=== PATIENT | female | born 1980 | race Caucasian/White ===

== ENCOUNTER 2017-07-15 17:09 | Observation (INO) ==
--- NOTE | 2017-07-15 17:30 | Emergency Department Note ---
Disposition Clinical Impression: Hyperemesis gravidarum, Hypokalemia Crohn's colitis Qualifiers: Digestive disease complication type: unspecified complication Qualified Code(s) : K50.119 - Crohn's disease of large intestine with unspecified complications Disposition: Admitted As Inpatient Condition: Fair Time of Disposition: 20:50 Nausea/Vomiting/Diarrhea HPI - General Chief complaint: ED Abdominal Pain Stated complaint: abdominal pain, 16 weeks preg Time Seen by Provider: 07/15/17 17:11 Source: patient Mode of arrival: ambulatory Limitations: no limitations Nursing Notes Reviewed: Yes Vital Signs Reviewed: Yes - History of Present Illness HPI Narrative: Mrs. Whiteside, a 37yo female, presents from [facility] for evaluation of persistent nausea and vomiting. She was seen in this ED 2 days ago for the same , discharged on reglan PO and phenergran rectal. She was unable to fill the prescription for these medications. She presented to [facility] this morning; received 1L IVF and 1 dose reglan. Her symptoms transiently improve with reglan then she is back to nausea and vomiting. She was also hypokalemic to 3.0 at [facility] and she was given 40mEq K at 16:30. They discharged with recommendation to present to [place] as her OB is at this facility. Patient has lower abdominal pain which she describes as cramping and consistent with her inflammatory pain of Crohn's. She also has right upper quadrant pain described as sharp, stabbing with radiation straight to her back. This is unchanged and vomiting and is worse within 1 hour of by mouth intake. Patient does have markedly reduced by mouth intake and is attempting chicken broth and sherbet ice cream. Patient noted her diarrhea began after she completed a ten-day course of Keflex for UTI prescribed by her OB. OB: Dr. Mckeon. PMH: well controlled Crohn's. - Related Data Previous Rx's Medication Instructions Recorded Metoclopramide [Reglan] 10 mg PO TID PRN #7 tablet 07/13/17 Promethazine [Phenergan] 12.5 mg RC Q6HR PRN #2 supp.rect 07/13/17 Allergies Allergy/AdvReac Type Severity Reaction Status Date / Time Penicillins Allergy Hives Verified 07/15/17 17:14 All systems ED: reviewed and negative except as stated. Review of Systems: As Per HPI Past Medical History - Past Medical History Medical history: Reports: other Psychiatric history: Reports: anxiety [facility] history: Reports: other - Social History Smoking Status: Never smoker Smokeless Tobacco Status: No Alcohol use: Reports: none Drug use: Reports: none Physical Exam Vital Signs Reviewed she is tachycardic on intake. General: Patient is alert, oriented, and in no acute distress. Head: atraumatic, normocephalic Eye: normal appearance, PERRL, EOMI, no scleral icterus, no conjunctival injection ENT: mucous membranes tacky, normal external ear exam Neck: normal inspection, trachea midline, full ROM Chest: normal inspection, symmetric chest rise Respiratory: Good respiratory effort. Bilateral breath sounds are clear without wheezing, crackles, or rhonchi. Cardiovascular: Regular rate and rhythm. No clicks, rubs, gallops, or murmors. Normal heart sounds. Abdomen: Bowel sounds present normoactive x-4 quadrants. Abdomen is soft, nondistended. Mild tenderness in lower abdomen most notable in the hypogastrium. Positive Cerna with right upper quadrant tenderness. Musculoskeletal: Spontaneously moving all extremities. Skin: warm, dry, intact. Neuro: Alert and oriented x4. Sensation light touch intact. Psych: Patient's affect is appropriate for situation. - General General appearance: alert, in no apparent distress Course Course Narrative: Labwork at [facility] performed this afternoon: Hematology: WBC 13.0 RBC 4.64 Hemoglobin 12.9 Hematocrit 38.8 Serum chemistry: Sodium 134 Potassium 3.0 Chloride 103 CO2 22 And 9 9.0 Glucose 85 BUN 6 Creatinine 0.5 to Calcium 8.0 Alkaline phosphatase 79 ALT 16 AST 19 Total bilirubin 0.6 Direct bilirubin 0.2 Albumin 2.9 Indirect bilirubin 0.4 Lipase 11 Urinalysis: Color yellow Appearance clear Specific gravity 1.025 PH 5.0 Gross normal Ketones 150 MG/D Bilirubin negative Blood 25/UL Urobilinogen normal Leukocyte esterase 25/UL Nitrites negative Protein 15 MG/DL WBC 10-25 RBC 0-5 Squamous epithelial moderate Bacteria many Patient was seen and evaluated in this emergency department for the same symptoms 3 days ago. Lab work at that time was unremarkable; specifically normal hepatic and biliary tree enzymes and no laboratory evidence UTI. Patient was hypokalemic at [facility] today and receive 40 mEq of by mouth potassium. She was able to keep this down approximately 2 hours before vomiting. Will repeat serum potassium. Serum potassium 3.2 at this facility. I discussed the above with the nurse engineering technology instructor, Madelyn, who agrees to accept the patient for hyperemesis gravidarum, hypokalemia, Crohn's. She is agreeable to me beginning prednisone at the minimum dose appropriate for Crohn's. I discussed prednisone with my attending. 40mg PO is the appropriate minimum prednisone dose, however PO. Will substitute decadron 10mg IV. Vital Signs Temperature 98.3 F 07/15/17 17:11 Pulse Rate 116 07/15/17 17:11 Respiratory Rate 16 07/15/17 17:11 Blood Pressure 129/83 07/15/17 17:11 O2 Sat by Pulse Oximetry 99 07/15/17 17:11 Temperature 98.3 F 07/15/17 17:11 Pulse Rate 116 07/15/17 17:11 Respiratory Rate 16 07/15/17 17:11 Blood Pressure 129/83 07/15/17 17:11 O2 Sat by Pulse Oximetry 99 07/15/17 17:11 Oxygen Delivery Oxygen Delivery Room Air Nausea/Vomiting/Diarrhea - Medical Records Medical records reviewed: Yes I reviewed the patient's medical records. - Lab Data Lab results reviewed: Yes I reviewed the patient's lab results. Result diagrams: 07/15/17 18:01 Lab Results 07/15/17 Range/Units 18:01 Potassium 3.2 L (3.5-5.1) mEq/L Attestation Statement - Attestation Attestation: I examined this patient and my medical decision-making was reviewed with the Resident Physician, Dr. Valle. I agree with the documented findings, disposition and treatment plan as described except to the extent set forth below. Patient is a 37-year-old white female is practicing 16 weeks A0 who I personally saw initially 48 hours ago for nausea vomiting and one loose watery bowel movement in the emergency department. We treated the patient with IV fluids and Reglan which improved her symptoms considerably and she was discharged home with a prescription for Reglan as well as Phenergan suppositories. Patient has been using Zofran at home up to this point for nausea and patient feels this is working well. Patient sees Dr. Mckeon for OB care and it was recommended that she follow up with Dr. Mckeon. Patient apparently was seen at [facility] prior to our arrival here was treated in the emergency room with a liter of fluids and Reglan with continued nausea and vomiting. She was also found to be hypokalemic and was given by mouth potassium replacement. Patient was recommended to come here since her BRICK SORTER has privileges here at this facility for ongoing evaluation. Patient denies any vaginal bleeding or spotting, and no significant abdominal pain no fevers or chills no other associated symptoms. I agree with patient's physical exam findings as documented. Vital signs are stable, the exception of mild tachycardia on arrival. Patient had IV saline well-established was started on IV fluids and given Reglan and Zofran for nausea here in the emergency department. We did not repeat labs as her entire lab panel was sent for [facility]. On serial examinations patient continues to have intractable nausea and vomiting as well as a few loose watery bowel movements here in the emergency department. Patient is not improved with ongoing therapy in the ED. Repeat potassium level was 3.2. Case was discussed with the engineering technology instructor who is telephone triage nurse covering for Dr. Mckeon who accepted patient for admission for ongoing IV fluids and medication for intractable vomiting. We will also start steroids, this was discussed with Dr. Mckeon and they agree for possible mild Crohn's flare. At this time patient is hemodynamically stable and will be admitted for further management.
[2017-07-15] MEDS ORDERED: 0.9 % Sodium Chloride 1,000 ML IVC ONE (17:50)
[2017-07-15] MEDS ORDERED: Metoclopramide 10 MG/2 ML VIAL IVP ONE (19:13)
[2017-07-15] MEDS ORDERED: Ondansetron 4 MG/2 ML VIAL IVP ONE (20:05)
[2017-07-15] MEDS ORDERED: Dexamethasone 10 MG/ML VIAL IVP ONE (21:11)
[2017-07-15] MEDS ORDERED: Ondansetron 4 MG/2 ML VIAL IVP PRN (21:25)
[2017-07-15] MEDS ORDERED: VITAMIN K IVPB SCH (22:00)
[2017-07-15] MEDS ORDERED: FOLIC ACID IVPB SCH (22:00)
[2017-07-15] MEDS ORDERED: MVI IVPB SCH (22:00)
[2017-07-15] MEDS ORDERED: THIAMINE IVPB SCH (22:00)
[2017-07-15] MEDS ORDERED: [UNRECOGNIZED DRUG - OTHER] IVPB SCH (22:00)
[2017-07-15] MEDS: Ringers Solution, Lactated 1,000 ML IVC SCH (22:50)
--- NOTE | 2017-07-15 23:59 | Internal Medicine Consult Note ---
Date of Encounter: 07/15/17 Time of Encounter: 23:00 - Assessment and Plan (1) Crohn's colitis Current Visit: Yes Status: Acute Assessment and plan: Pt symptoms does look like Crohn's flare up Will cont home med Asacol 1600mg TID Will start her on Solumedrol 40mg IV BID.. Checked with OB IV hdyration NPO for now IV Zofran PRN Continue supportive and symptomatic care She does need to be evaluated by GI too... Since she does not have a GI to f/u as an out pt Pt did mention she did well in the past with Humira...however her insurance is not covering that for now.. so she is off Humira for a while Will consult GI in AM depending on how she responds to the current treatment Qualifiers: Digestive disease complication type: without complication Qualified Code(s) : K50.10 - Crohn's disease of large intestine without complications (2) Diarrhea Current Visit: Yes Status: Acute Assessment and plan: due to Crohn's will check for C. Diff too..since she was given Abx recently Qualifiers: Qualified Code(s): R19.7 - Diarrhea, unspecified (3) Hyperemesis gravidarum Current Visit: Yes Status: Acute Assessment and plan: on Zofran (4) UTI (urinary tract infection) Current Visit: Yes Status: Acute Assessment and plan: Asymptomatic UTI Her UA - looks abnormal Pt did mention she recently finished a full course of abx for UTI will defer the abx choice to OB.. will f/u on urine cx Qualifiers: Qualified Code(s): N39.0 - Urinary tract infection, site not specified (5) Nausea & vomiting Current Visit: No Status: Acute Qualifiers: Vomiting type: unspecified Vomiting Intractability: intractable Qualified Code(s): R11.2 - Nausea with vomiting, unspecified Internal Medicine - CN: HPI - Data of Consult Patient: new to practice Requesting Physician: Madelyn Haley CNM - Consult Narrative History of present illness: Ms. Whiteside is a 37 year old female with known Crohn's disease dx when she was 17 y/o, recurrent UTI, 17 weeks gestation pt who is on Asacol for her crohn's and had her last flare up in Jan 2017 now she presented to our ER from [place] for further evaluation for intractable nausea and vomiting, as well as diarrhea. Pt stated she has been having hyperemeiss with the , however from last 2 days she has worsening abdominal pain and profuse watery diarrhea. Unable to hold anything down. Her abd pain 7/10, located RLQ, and non radiating pain. She denied any sick contacts at home. Pt stated her nausea improved with Zofran. She was given Decadran in the ER for Crohn's flare up Past Med Surg Social Fam HX - Past Medical History Medical history: arthritis, other (Crohn's) Psychiatric history: anxiety - Past Surgical History Surgical History: other (Colonoscopy 2yrs ago) - Social History Smoking Status: Never smoker Smokeless Tobacco Status: No Alcohol use: none Drug use: none - Additional Family History Additional family history: Reviewed.. Denied any Crohn's disease in the family Review of systems: Reviewed all the systems, everything is benign except the systems and symptoms I mentioned in HPI Internal Medicine - CN: Meds Metoclopramide [Reglan] 10 mg PO TID PRN #7 tablet 07/13/17 [Rx] Promethazine [Phenergan] 12.5 mg RC Q6HR PRN #2 supp.rect 07/13/17 [Rx] 3 Allergy/AdvReac Type Severity Reaction Status Date / Time Penicillins Allergy Hives Verified 07/15/17 17:14 Internal Medicine - CN: Exam - Constitutional Vitals: Temp Pulse Resp BP Pulse Ox 98.3 F 105 14 115/74 100 07/15/17 21:40 07/15/17 21:40 07/15/17 21:40 07/15/17 21:40 07/15/17 21:40 General appearance IM: Present: cooperative, mild distress (with pain), A&O X 3 , answers questions appropriately - Head Head exam: Present: atraumatic, normal inspection - Neck Neck exam general surgery: Present: supple - Respiratory Respiratory exam: Present: CTAB. Absent: decreased breath sounds, rales, respiratory distress, rhonchi, wheezes - Cardiovascular Cardiovascular exam IM: Present: RRR, +S1, +S2. Absent: systolic murmur, tachycardia - GI/Abdominal GI/Abdominal exam IM: Present: hyperactive bowel sounds, normal bowel sounds, soft, tenderness (lower abdomen). Absent: distended, guarding, rebound, rigid - Extremities Exam Extremities exam IM: Absent: calf tenderness, pedal edema, tenderness - Back Exam Back exam: Absent: CVA tenderness (L), CVA tenderness (R) - Neurological Exam Neurological exam: Present: alert, oriented X3 - Psychiatric Psychiatric exam: Present: normal affect, normal mood - Skin Skin exam IM: Absent: rash Internal Medicine - CN: Reslt - Labs CBC & Chem 7: 07/15/17 18:01 Consult Discharge Plan - Plan Referrals: Steve Wasserman MD [Primary Care Provider] -
[2017-07-16 00:58] LABS: Amphetamine Screen,Urine Negative ng/mL (Cutoff=1000); Barbiturate Screen,Urine Negative ng/mL (Cutoff=200); Benzodiazepines Screen,Urine Negative ng/mL (Cutoff=200); Cannabinoid Screen,Urine Negative ng/mL (Cutoff = 50); Cocaine Screen,Urine Negative ng/mL (Cutoff= 300); Opiate Screen,Urine Negative ng/mL (Cutoff=300); Phencyclidine Screen,Urine Negative ng/mL (Cutoff=25)
[2017-07-16] MEDS: Metoclopramide 10 MG/2 ML VIAL IVP SCH ×2 (02:47→09:09)
[2017-07-16 04:34] LABS: Basophils # 0.1 K/mcL (0.0-0.2); Basophils % 0.6 %; Eosinophils # 0.1 K/mcL (0.0-0.6); Eosinophils % 0.5 %; Hematocrit 34.3 % (35.3-44.9); Hemoglobin 11.7 g/dL (11.5-15.4); Immature Granulocytes % 2.4 % (0-4); Lymphocytes # 1.4 K/mcL (0.6-4.6); Mean Corpuscular HGB Conc 34.1 g/dL (31.6-35.5); Mean Corpuscular Hemoglobin 28.7 pg (28.0-33.3); Mean Corpuscular Volume 84.1 fL (83.0-100.0); Mean Platelet Volume 8.5 fL (9.4-12.4); Monocytes # 0.3 K/mcL (0.0-1.3); Monocytes % 2.2 %; Neutrophils # 9.4 K/mcL (1.6-8.9); Platelet Count 395 K/mcL (140-400); Red Blood Count 4.08 M/mcL (3.82-4.97); Red Cell Distribution Width 13.1 % (11.5-14.5); Segmented Neutrophils % 82.3 %
[2017-07-16 04:50] LABS: Alanine Aminotransferase 13 Units/L (7-52); Albumin 2.8 g/dL (3.5-5.7); Albumin/Globulin Ratio 0.9 (1.1-2.2); Alkaline Phosphatase 78 Units/L (34-104); Aspartate Amino Transferase 13 Units/L (13-39); BUN/Creatinine Ratio 9 (6-26); Bilirubin,Total 0.5 mg/dL (0.3-1.0); Blood Urea Nitrogen 3 mg/dL (6-20); Calcium 8.2 mg/dL (8.6-10.3); Carbon Dioxide 17 mEq/L (23-29); Chloride 108 mEq/L (98-107); Globulin 3.2 g/dL (2.4-3.5); Glucose 89 mg/dL (70-105); Osmolality,Calculated 276 (280-300); Potassium 3.6 mEq/L (3.5-5.1); Sodium 135 mEq/L (136-145); eGFR For African Americans > 60 (> 60); eGFR For Non-African Americans > 60 (> 60)
[2017-07-16] MEDS ORDERED: MethylPREDNISolone 40 MG/ML VIAL IVP SCH (06:00)
[2017-07-16 06:33] LABS: Magnesium 1.6 mg/dL (1.6-2.6)
--- NOTE | 2017-07-16 07:25 | OB/GYN History & Physical ---
Date of Encounter: 07/16/17 Time of Encounter: 07:17 Assessment and Plan (1) Hyperemesis gravidarum Current visit: Yes Status: Acute Advance diet as tolerated Change antiemetics to PO Anticipate discharge home this evening or tomorrow morning (2) 18 weeks gestation of Current visit: Yes Status: Acute Follow up in office as scheduled with routine care (3) Crohn's colitis Current visit: Yes Status: Acute Being followed by hospitalist Anticipate discharge home on prednisone taper. Qualifiers: Digestive disease complication type: without complication Qualified Code(s) : K50.10 - Crohn's disease of large intestine without complications History of Present Illness Chief complaint: Nausea and vomting HPI: Ms. Whiteside is a 37 year old at 18 weeks 1 days by second trimester ultrasound presents to [facility] ED with complaints of nausea, vomiting, diarrhea, and RUQ pain. She states positve movement. She denies vaginal bleeding, discharge, epigastric pain, vision changes, and cramping/contractions. SHe has a history of pre-eclampsia with a previous . She has Crohn's disease and believes she may be having a flare. She was given solumedrol in the ED and states that she feels much better since getting the steroids. Past Med Surg Social Fam HX - Past Medical History Medical history: arthritis, other (Crohn's) Psychiatric history: anxiety - Past Surgical History Surgical History: other (Colonoscopy 2yrs ago) - Social History Smoking Status: Never smoker Smokeless Tobacco Status: No Alcohol use: none Drug use: none Obstetrical History - Pregnancies : 2 Para: 1 Term: 1 : 0 Ab's: 0 Livin Medications and Allergies Metoclopramide [Reglan] 10 mg PO TID PRN #7 tablet 07/13/17 [Rx] Promethazine [Phenergan] 12.5 mg RC Q6HR PRN #2 supp.rect 07/13/17 [Rx] 3 Allergy/AdvReac Type Severity Reaction Status Date / Time Penicillins Allergy Hives Verified 07/15/17 17:14 Review of System OB All systems PM: reviewed and no additional remarkable complaints except as stated Exam - Vital Signs Vital signs: Initial Vital Signs Temp Pulse Resp BP Pulse Ox 98.3 F 116 16 129/83 99 07/15/17 17:11 07/15/17 17:11 07/15/17 17:11 07/15/17 17:11 07/15/17 17:11 - Constitutional Constitutional: well developed, well nourished, no acute distress, average body habitus - HEENT HEENT: Normocephaly, Mucus Membranes Moist - Neck Neck exam: full ROM - Lungs Respiratory exam: CTAB - Cardiovascular Cardiovascular exam: RRR, +S1, +S2 - Abdomen Abdomen: Present: bowel sounds normal, gravid, non tender - Extremities Extremities exam: normal capillary refill, normal inspection, radial pulses palpable and symmetrical Deep Tendon Reflex Grade: 2+ Normal - Vulva Vulva: bilateral: normal Results Result Diagrams: 07/16/17 04:20 07/16/17 04:20 Abnormal lab results WBC 11.4 K/mcL (4.3-11.1) H 07/16/17 04:20 Hct 34.3 % (35.3-44.9) L 07/16/17 04:20 MPV 8.5 fL (9.4-12.4) L 07/16/17 04:20 Neutrophils # 9.4 K/mcL (1.6-8.9) H 07/16/17 04:20 Sodium 135 mEq/L (136-145) L 07/16/17 04:20 Chloride 108 mEq/L (98-107) H 07/16/17 04:20 Carbon Dioxide 17 mEq/L (23-29) L 07/16/17 04:20 BUN 3 mg/dL (6-20) L 07/16/17 04:20 Creatinine 0.33 mg/dL (0.60-1.20) L 07/16/17 04:20 Calculated Osmolality 276 (280-300) L 07/16/17 04:20 Calcium 8.2 mg/dL (8.6-10.3) L 07/16/17 04:20 Serum Total Protein 6.0 g/dL (6.4-8.9) L 07/16/17 04:20 Albumin 2.8 g/dL (3.5-5.7) L 07/16/17 04:20 Albumin/Globulin Ratio 0.9 (1.1-2.2) L 07/16/17 04:20 All other labs normal. - VTE Reasons for not Prescribing Prophylaxis: Treatment not Indicated - Low risk for VTE
[2017-07-16] MEDS ORDERED: Ondansetron ODT 4 MG TAB.RAPDIS SL PRN (07:29)
[2017-07-16] MEDS: Ringers Solution, Lactated 1,000 ML IVC SCH (08:03)
--- NOTE | 2017-07-16 11:13 | Internal Med Progress Note ---
Date of Encounter: 07/16/17 Time of Encounter: 09:30 - Assessment and plan (1) Crohn's colitis Current Visit: Yes Status: Acute Assessment and plan: Symptoms have significantly improved. No new episodes of diarrhea. Continue steroids. We will transition to oral steroids. Gastroenterology consultation for recommendations and to arrange outpatient follow-up. Qualifiers: Digestive disease complication type: without complication Qualified Code(s) : K50.10 - Crohn's disease of large intestine without complications (2) Diarrhea Current Visit: Yes Status: Resolved Assessment and plan: Diarrhea likely due to Crohn's flareup. No new episodes of diarrhea. No signs of C. difficile. We will discontinue isolation precautions. Consider stool studies at this time. Qualifiers: Qualified Code(s): R19.7 - Diarrhea, unspecified (3) UTI (urinary tract infection) Current Visit: Yes Status: Ruled-out Qualifiers: Urinary tract infection type: site unspecified Hematuria presence: without hematuria Qualified Code(s): N39.0 - Urinary tract infection, site not specified (4) 18 weeks gestation of Current Visit: Yes Status: Acute Assessment and plan: Obstetric- gynecology following. - Subjective Interval history: Patient is feeling much better today. No longer having any nausea or vomiting. No new episodes of diarrhea since being hospitalized. No significant abdominal pain at this time. - Constitutional Vitals: Temp Pulse Resp BP Pulse Ox 97.7 F 107 15 116/79 96 07/16/17 08:56 07/16/17 08:56 07/16/17 08:56 07/16/17 08:56 07/16/17 08:56 General appearance: Present: cooperative, A&O X 3, no acute distress, answers questions appropriately - Neck Neck exam general surgery: Present: supple, trachea midline. Absent: lymphadenopathy - Respiratory Respiratory exam: Present: CTAB. Absent: accessory muscle use, rales, rhonchi, wheezes - Cardiovascular Cardiovascular exam: Present: RRR, +S1, +S2. Absent: diastolic murmur, gallop, rubs, systolic murmur - GI/Abdominal GI/Abdominal exam: Present: normal bowel sounds, soft, no peritoneal signs. Absent: distended, tenderness - Extremities Exam Extremities exam: Present: warm, radial pulses palpable and symmetrical. Absent : calf tenderness, cyanotic, pedal edema Internal Medicine: Result - Labs CBC & Chem 7: 02/12/18 04:20 07/16/17 04:20 Labs: Short CBC 07/16/17 Range/Units 04:20 WBC 11.4 H (4.3-11.1) K/mcL Hgb 11.7 (11.5-15.4) g/dL Hct 34.3 L (35.3-44.9) % Plt Count 395 (140-400) K/mcL Neutrophils # 9.4 H (1.6-8.9) K/mcL BMP 07/16/17 04:20 Sodium 135 L Potassium 3.6 Chloride 108 H Carbon Dioxide 17 L BUN 3 L Creatinine 0.33 L Glucose 89 Calcium 8.2 L Liver Function 07/16/17 Range/Units 04:20 Total Bilirubin 0.5 (0.3-1.0) mg/dL AST 13 (13-39) Units/L ALT 13 (7-52) Units/L Alkaline Phosphatase 78 (34-104) Units/L Albumin 2.8 L (3.5-5.7) g/dL - VTE Reasons for not Prescribing Prophylaxis: Treatment not Indicated - Low risk for VTE Consult Discharge Plan - Plan Referrals: Steve Wasserman MD [Primary Care Provider] -
[2017-07-16 16:02] VITALS: BP 106/69
--- NOTE | 2017-07-16 16:28 | Event Note ---
Date of Encounter: 07/16/17 Time of Encounter: 16:[address] Pierson from GI. He will evaluate patient today.
--- NOTE | 2017-07-16 17:59 | Gastroenterology Consult Note ---
<Magali Russell - Last Filed: 07/16/17 17:53> Date of Encounter: 07/16/17 Time of Encounter: 12:30 - Assessment and plan (1) Crohn's colitis Status: Acute Assessment and plan: Pt has history of Crohn's since age 17. She has been on humira in the past, is currently on asacol. Will follow as an outpatient. She is improved on steroids currently. Will need colonoscopy after delivery. Qualifiers: Digestive disease complication type: without complication Qualified Code(s) : K50.10 - Crohn's disease of large intestine without complications - Time Spent With Patient Total time spent is greater than 50% in coordination of care (as documented) at patient's floor/unit and/or counseling patient: GI History of Present Illness - Data of Consult Patient: new to practice Consult date: 07/16/17 Requesting Physician: Madelyn Haley CNM - Consult Narrative Reason for consult: Crohn's disease History of present illness: Ms. Whiteside is a 37 year old female with known Crohn's disease dx when she was 17 y/o, recurrent UTI, 17 weeks gestation. She presents with diarrhea, nausea, vomiting and RUQ abdominal pain. She has been doing well on Asacol. She staes her last flare up was in Jan 2017. Pt stated she has been having hyperemeiss with the , however from last 2 days she has worsening abdominal pain and profuse watery diarrhea up to 15-20 times a day. She reports two BMs had streaks of blood. She also has been unable to hold anything down. Her abd pain 7/10, located RLQ, and non radiating pain. She denied any sick contacts at home. Pt stated her nausea improved with Zofran. She was given Decadran in the ER for Crohn's flare up and reports she feels much better at this time. She states she had been on Humira in the past but is currently not covered by her insurance. She was followed by GI at [facility] in [facility], but is not currently esablished with GI, and her PCP has been prescribing asacol as she was doing well. WBCs 11.4, hemoglobin 11.7, sodium 135 , potassium 3.6, BUN of 3, creatinine 0.33, Tis normal, albumin 2.8. Colonoscopy: 2 years ago [facility] EGD: denies NSAIDS/ASA: none Anticoagulants: none Past Med Surg Social Fam HX - Past Medical History Medical history: arthritis, other (Crohn's) Psychiatric history: anxiety - Past Surgical History Surgical History: other (Colonoscopy 2yrs ago) - Social History Smoking Status: Never smoker Smokeless Tobacco Status: No Alcohol use: none Drug use: none Review of Systems: GI: as per [facility] GENERAL: denies fever, has some chills EYES: denies yellow discoloration ENT: denies pain with swallowing or difficulty swallowing CARDIO: denies chest pain, palpitations RESP: No Shortness of breath with exertion : denies change in color of urine NEURO: weakness HEME: Denies any bruising MS: denies joint pain, joint swelling or back pain. DERM: denies rash or itching PSYCH: Denies history of anxiety or depression - Constitutional Vitals: Temp Pulse Resp BP Pulse Ox 98.6 F 100 16 106/69 99 07/16/17 16:00 07/16/17 16:00 07/16/17 16:00 07/16/17 16:00 07/16/17 16:00 Exam: CONSTITUTIONAL:~alert, no acute distress.~HEAD:~normocephalic.~EYES:~no jaundice.~NECK:~no obvious swelling.~HEART:~regular rate and rhythm, no murmurs. ~LUNGS:~bilateral good air entry.~ABDOMEN:~rounded, tender to RUQ, RECTAL EXAM:~ Deferred.~EXTREMITIES:~no clubbing, cyanosis or edema.~SKIN:~no stigmata of chronic liver disease.~NEUROLOGIC:~no obvious focal defect.~~~~ Results - Labs CBC & Chem 7: 07/16/17 04:20 07/16/17 04:20 Labs: Last Result Calcium 8.2 mg/dL (8.6-10.3) L 07/16/17 04:20 Urine Opiates Screen Negative ng/mL (Kctowf=[id number]) 07/15/17 22:30 Entire Visit Hgb 11.7 g/dL (11.5-15.4) 07/16/17 04:20 Hct 34.3 % (35.3-44.9) L 07/16/17 04:20 Total Bilirubin 0.5 mg/dL (0.3-1.0) 07/16/17 04:20 AST 13 Units/L (13-39) 07/16/17 04:20 ALT 13 Units/L (7-52) 07/16/17 04:20 Consult Discharge Plan - Plan Instructions: Crohn Disease (DC) Referrals: Steve Wasserman MD [Primary Care Provider] - Caden Mckeon MD [Partnered Physician] - Prescriptions: PredniSONE [Deltasone] 20 mg PO DAILY 7 Days #7 tablet predniSONE [PredniSONE] 10 mg PO DAILY #7 tablet <Hawk Pierson - Last Filed: 07/16/17 22:18> Date of Encounter: 07/16/17 Time of Encounter: 18:00 - Time Spent With Patient Total time spent is greater than 50% in coordination of care (as documented) at patient's floor/unit and/or counseling patient: GI History of Present Illness - Data of Consult Requesting Physician: Madelyn Haley CNM - Consult Narrative History of present illness: Ms. Whiteside is a 37 year old female - Constitutional Vitals: Temp Pulse Resp BP Pulse Ox 98.6 F 100 16 106/69 99 07/16/17 16:00 07/16/17 16:00 07/16/17 16:00 07/16/17 16:00 07/16/17 16:00 Results - Labs CBC & Chem 7: 07/16/17 04:20 07/16/17 04:20 Labs: Last Result Calcium 8.2 mg/dL (8.6-10.3) L 07/16/17 04:20 Urine Opiates Screen Negative ng/mL (Zizvys=[id number]) 07/15/17 22:30 Entire Visit Hgb 11.7 g/dL (11.5-15.4) 07/16/17 04:20 Hct 34.3 % (35.3-44.9) L 07/16/17 04:20 Total Bilirubin 0.5 mg/dL (0.3-1.0) 07/16/17 04:20 AST 13 Units/L (13-39) 07/16/17 04:20 ALT 13 Units/L (7-52) 07/16/17 04:20 - Attending Attestation I examined this patient and my medical decision-making was reviewed with the COMMISSARY REPRESENTATIVE. I agree with the documented findings, disposition and treatment plan as described except to the extent set forth below. Pt with Crohns with poss flare , but took abs recently r/o c-diff. Rec: Stool studies, PO pred 20 mg x 1 week then 10 mg
--- NOTE | 2017-07-16 18:35 | Discharge Summary ---
Date of Encounter: 07/16/17 Time of Encounter: 18:32 - Discharge Diagnosis (1) 18 weeks gestation of Priority: Secondary Status: Acute (2) Crohn's colitis Priority: Primary Status: Acute Comments: Discharge home tonight. Per Dr. Pierson, pt to take 20mg prednisone x 1 week, then 10mg prednisone x 1 week Follow up with Dr. Pierson as recommended Follow up with Dr. Mckeon as scheduled. Qualifiers: Digestive disease complication type: without complication Qualified Code(s) : K50.10 - Crohn's disease of large intestine without complications (3) Nausea & vomiting Priority: Secondary Status: Acute Qualifiers: Vomiting type: unspecified Vomiting Intractability: intractable Qualified Code(s): R11.2 - Nausea with vomiting, unspecified - Discharge Medications Prescriptions: PredniSONE [Deltasone] 20 mg PO DAILY 7 Days #7 tablet predniSONE [PredniSONE] 10 mg PO DAILY #7 tablet Home Medications: DiphenhydraMINE [Benadryl] 25 mg IVP Q6HR PRN vial 07/16/17 [Rx] PredniSONE [Deltasone] 20 mg PO DAILY 7 Days #7 tablet 07/16/17 [Rx] Promethazine [Phenergan] 25 mg PO BID PRN 07/16/17 [History] predniSONE [PredniSONE] 10 mg PO DAILY #7 tablet 07/16/17 [Rx] Allergies/Adverse Reactions: 3 Allergy/AdvReac Type Severity Reaction Status Date / Time Penicillins Allergy Hives Verified 07/15/17 17:14 Data Procedures and tests throughout hospitalization: Laboratory Tests 07/15/17 07/16/17 07/16/17 22:30 04:20 04:20 WBC 11.4 H RBC 4.08 Hgb 11.7 Hct 34.3 L MCV 84.1 MCH 28.7 MCHC 34.1 RDW 13.1 Plt Count 395 MPV 8.5 L Immature Gran % 2.4 Seg Neutrophils % 82.3 Lymphocytes % 12.0 Monocytes % 2.2 Eosinophils % 0.5 Basophils % 0.6 Neutrophils # 9.4 H Lymphocytes # 1.4 Monocytes # 0.3 Eosinophils # 0.1 Basophils # 0.1 Sodium 135 L Potassium 3.6 Chloride 108 H Carbon Dioxide 17 L BUN 3 L Creatinine 0.33 L Est GFR ( Amer) > 60 Est GFR (Non-Af Amer) > 60 BUN/Creatinine Ratio 9 Glucose 89 Calculated Osmolality 276 L Calcium 8.2 L Magnesium 1.6 Total Bilirubin 0.5 AST 13 ALT 13 Alkaline Phosphatase 78 Serum Total Protein 6.0 L Albumin 2.8 L Globulin 3.2 Albumin/Globulin Ratio 0.9 L Urine Opiates Screen Negative Ur Barbiturates Screen Negative Ur Phencyclidine Scrn Negative Ur Amphetamines Screen Negative U Benzodiazepines Scrn Negative Urine Cocaine Screen Negative U Marijuana (THC) Screen Negative Labs on day of discharge: Labs from last 24 hours 07/16/17 07/16/17 07/15/17 04:20 04:20 22:30 WBC 11.4 H RBC 4.08 Hgb 11.7 Hct 34.3 L MCV 84.1 MCH 28.7 MCHC 34.1 RDW 13.1 Plt Count 395 MPV 8.5 L Immature Gran % 2.4 Seg Neutrophils % 82.3 Lymphocytes % 12.0 Monocytes % 2.2 Eosinophils % 0.5 Basophils % 0.6 Neutrophils # 9.4 H Lymphocytes # 1.4 Monocytes # 0.3 Eosinophils # 0.1 Basophils # 0.1 Sodium 135 L Potassium 3.6 Chloride 108 H Carbon Dioxide 17 L BUN 3 L Creatinine 0.33 L Est GFR ( Amer) > 60 Est GFR (Non-Af Amer) > 60 BUN/Creatinine Ratio 9 Glucose 89 Calculated Osmolality 276 L Calcium 8.2 L Magnesium 1.6 Total Bilirubin 0.5 AST 13 ALT 13 Alkaline Phosphatase 78 Serum Total Protein 6.0 L Albumin 2.8 L Globulin 3.2 Albumin/Globulin Ratio 0.9 L Urine Opiates Screen Negative Ur Barbiturates Screen Negative Ur Phencyclidine Scrn Negative Ur Amphetamines Screen Negative U Benzodiazepines Scrn Negative Urine Cocaine Screen Negative U Marijuana (THC) Screen Negative Date of admission: 07/15/17 20:55 Primary care physician: Steve Loaiza Consults: 07/15/17 21:42 Consult to Hospitalist [CONS] Routine Consulting Provider: Hospitalist Rhett Reason for Consult: Crohns disease Time Notified: 21:45 Call Completed: Yes 07/16/17 07:50 Consult to Gastroenterology [CONS] Routine Consulting Provider: Gastroenterology Trina Reason for Consult: Crohn's disease Call Completed: No Discharging clinician: Madelyn Mendoza Anticipated date of discharge: 07/16/17 - Patient Status Disposition: Home, Self-Care Condition: Good Functional capacity at discharge: independent ambulation Overall status at discharge: patient is progressing back to baseline - Discharge Instructions Follow Up With: Steve Wasserman MD [Primary Care Provider] - Caden Mckeon MD [Partnered Physician] - - Diet and Activity Activity: increase activity as tolerated Diet: regular diet Hospital Course [facility] Time Attestation: Total time spent providing and/or coordinating discharge services: Exam - Constitutional Vitals: Temp Pulse Resp BP Pulse Ox 98.6 F 100 16 106/69 99 07/16/17 16:00 07/16/17 16:00 07/16/17 16:00 07/16/17 16:00 07/16/17 16:00 General appearance IM: A&O X 3 - Respiratory Respiratory exam: Present: CTAB - Cardiovascular Cardiovascular exam IM: Present: RRR, +S1, +S2 - GI/Abdominal GI/Abdominal exam IM: normal bowel sounds, no peritoneal signs - Rectal Rectal exam: deferred - Extremities Exam Extremities exam IM: Present: radial pulses palpable and symmetrical - Neurological Exam Neurological exam: alert, oriented X3 - Psychiatric Additional comments: Pt reports she is feeling mentally well. - VTE Reasons for not Prescribing Prophylaxis: Treatment not Indicated - Low risk for VTE
[2017-07-17] MEDS ORDERED: predniSONE 20 MG TABLET PO SCH (09:00)
== END 2017-07-16 19:03 | disposition home or self-care (01) ==
LOC: EMEROO 17:09 → 1NENUOBS 17:09 → 3NENU 07-16 03:35 → 1NENUOBS 07-16 15:46
PROVIDERS: ADMIT Advanced Practice Midwife; ATTEND Advanced Practice Midwife

== ENCOUNTER 2017-09-12 16:22 | Observation (INO) ==
[2017-09-12] MEDS ORDERED: *HR* Promethazine 25 MG/ML VIAL IVP ONE (16:58)
[2017-09-12] MEDS ORDERED: 0.9 % Sodium Chloride 1,000 ML IVC ONE (16:58)
--- NOTE | 2017-09-12 17:05 | Emergency Department Note ---
Disposition Clinical Impression: LLQ pain, RUQ pain, 26 weeks gestation of , History of Crohn's disease Nausea and vomiting Qualifiers: Vomiting type: unspecified Vomiting Intractability: intractable Qualified Code( s): R11.2 - Nausea with vomiting, unspecified Diarrhea Qualifiers: Diarrhea type: unspecified type Qualified Code(s): R19.7 - Diarrhea, unspecified Disposition: Admitted As Inpatient Condition: Good Time of Disposition: 19:40 Abdominal Pain HPI - General Chief Complaint: ED Abdominal Pain Stated Complaint: "Crohns flare up" Time Seen by Provider: 09/12/17 16:38 Source: patient Mode of arrival: ambulatory Limitations: no limitations Nursing Notes Reviewed: Yes Vital Signs Reviewed: Yes - History of Present Illness HPI Narrative: Patient is a 37-year-old female, , approximately 26 week female, history of Crohn's. She presents today due to multiple complaints. Patient says that she has a history of Crohn's, used to be on chronic maintenance medication but has not been on these medications since she has been . She has had an episode of Crohn's flare in July where she had to be admitted and received IV steroids and then was sent home with by mouth steroids for 2 weeks. She presents today with return of those symptoms. She complains of left lower quadrant pain, feels like all previous episodes of Crohn's flare. She also reports right upper quadrant pain that is colicky, mainly occurs with food intake, radiates to her right back. Otherwise, denies any fevers. She does admit to nausea and vomiting, occasional loose stools with streaks of blood that is consistent with her presentation with previous Crohn's flares. She was seen by GI today, Dr. Pierson, who has referred her to the ER for fluids and ultrasound of her gallbladder. Otherwise, the patient denies any complications with current , no gestational hypertension or diabetes. Her last ultrasound was about a week or 2 ago. She says that everything was fine. She denies any dysuria, hematuria, vaginal bleeding or discharge. Pain Scale: 8 - Related Data Home Medications Medication Instructions Recorded Confirmed RX: Promethazine [Phenergan] 25 mg PO Q12H PRN 07/16/17 09/12/17 Esomeprazole Magnesium [Nexium] 20 mg PO DAILY 09/12/17 09/12/17 Mesalamine [Asacol Hd] 1,600 mg PO TID 09/12/17 Ondansetron HCl [Zofran] 4 mg PO Q8H PRN 09/12/17 09/12/17 Pnv95/Ferrous Fumarate/FA 1 each PO DAILY 09/12/17 09/12/17 [ Vitamin Tablet] Allergies Allergy/AdvReac Type Severity Reaction Status Date / Time Penicillins Allergy Hives Verified 07/15/17 17:14 All systems ED: reviewed and negative except as stated. Constitutional: Denies: fever Cardiovascular: Denies: chest pain Respiratory: Denies: cough, dyspnea Gastrointestinal: Reports: abdominal pain, nausea, vomiting, diarrhea, hematochezia Genitourinary: Denies: urgency, dysuria, frequency, hematuria, discharge, abnormal menses Integumentary: Denies: rash Neurological: Denies: headache, weakness, numbness, paresthesias Abdominal Pain PMH - Past Medical History Medical history: Reports: arthritis, other Female Surgical History: Reports: other CODING SPEC history: Reports: other : 2 Para: 1 Psychiatric history: Reports: anxiety - Social History Smoking status: Never smoker Alcohol use: Reports: none Drug use: Reports: none Physical Exam - General Limitations: no limitations General appearance: alert - Head Head exam: atraumatic, normocephalic, normal inspection - Eye Eye exam: Present: normal appearance, PERRL, EOMI - ENT ENT exam: normal exam, normal oropharynx, mucous membranes moist - Neck Neck exam: Present: normal inspection, full ROM, trachea midline - Chest Chest inspection: Present: normal inspection, symmetric chest wall rise - Respiratory Respiratory exam: Present: normal lung sounds bilaterally - Cardiovascular Cardiovascular exam: Present: normal rhythm, tachycardia, normal heart sounds - Abdominal Exam Abdominal exam: Present: soft, tenderness (RUQ, LLQ - moderate in intensity), other (gravid, uterus palpated approx 6cm above umbilicus). Absent: distention , guarding, rebound, rigidity, Cerna's sign, Rovsing's sign, tenderness at McBurney's Point - Extremities Exam Extremities exam: Present: normal inspection, full ROM. Absent: tenderness, pedal edema Course Course Narrative: Patient was tachycardic on presentation. Otherwise, the rest of the vitals were within normal limits. Physical exam shows a right upper quadrant and left lower quadrant tenderness. Otherwise negative McBurney's, negative Cerna's. Currently concern for biliary colic, also Crohn's flare due to left lower quadrant pain and blood-streaked diarrhea. She had a similar presentation in in nature. She says "I believe I am going to need to be admitted". She has never had an official workup for her right upper quadrant pain despite having colicky pain for the past few weeks. We will obtain basic blood work, LFTs, lipase, right upper quadrant ultrasound to assess gallbladder. We will obtain heart tones. Patient just had an ultrasound last week and was told everything was normal, no other current , patient or vaginal bleeding at this time. We will also give fluids, patient has requested Phenergan IV as she has had this in the past and says that it works well. Will also give patient Tylenol. She has declined any other pain medication at this time. She has also been offered CT abd pelvis but has declined a CT for further evaluation due to the radiation risks with . 19:38 basic labs showed no elevation in LFTs or lipase. Gallbladder ultrasound showed gallbladder sludge but no evidence of cholecystitis or common bile duct dilatation. Patient was reassessed, she is having continued left lower quadrant pain. She has has continued nausea despite treatment here in the ER. She says she does not for control with going home at this time and has requested admission for concern for Crohn's flare and intractable nausea, vomiting, abdominal pain. I spoke with OB, spoke with Darlny Roman, discussed case, presentation, and imaging results. She agreed to admitting the patient at this time. Gallbladder Ultrasound 09/12/17 16:59 IMPRESSION: Echogenic material suspected within the proximal common bile duct, possibly indicating stones/sludge. There is no significant common bile duct dilation. Gallbladder sludge suspected. D/ / Dante Raphael MD / Dante Raphael MD Interpreting Provider: Dante Raphael MD Vital Signs Temperature 98.1 F 09/12/17 16:28 Pulse Rate 124 09/12/17 16:28 Respiratory Rate 14 09/12/17 16:28 Blood Pressure 125/87 09/12/17 16:28 O2 Sat by Pulse Oximetry 98 09/12/17 16:28 Temperature 98.1 F 09/12/17 16:28 Pulse Rate 119 09/12/17 19:53 Respiratory Rate 16 09/12/17 19:53 Blood Pressure 111/77 09/12/17 19:53 O2 Sat by Pulse Oximetry 97 09/12/17 19:53 Oxygen Delivery Oxygen Delivery Room Air Abdominal Pain - MDM Narrative Medical decision making narrative: Patient was tachycardic on presentation. Otherwise, the rest of the vitals were within normal limits. Physical exam shows a right upper quadrant and left lower quadrant tenderness. Otherwise negative McBurney's, negative Cerna's. Currently concern for biliary colic, also Crohn's flare due to left lower quadrant pain and blood-streaked diarrhea. She had a similar presentation in in nature. She says "I believe I am going to need to be admitted". She has never had an official workup for her right upper quadrant pain despite having colicky pain for the past few weeks. We will obtain basic blood work, LFTs, lipase, right upper quadrant ultrasound to assess gallbladder. We will obtain heart tones. Patient just had an ultrasound last week and was told everything was normal, no other current , patient or vaginal bleeding at this time. We will also give fluids, patient has requested Phenergan IV as she has had this in the past and says that it works well. Will also give patient Tylenol. She has declined any other pain medication at this time. She has also been offered CT abd pelvis but has declined a CT for further evaluation due to the radiation risks with . 19:38 basic labs showed no elevation in LFTs or lipase. Gallbladder ultrasound showed gallbladder sludge but no evidence of cholecystitis or common bile duct dilatation. Patient was reassessed, she is having continued left lower quadrant pain. She has has continued nausea despite treatment here in the ER. She says she does not for control with going home at this time and has requested admission for concern for Crohn's flare and intractable nausea, vomiting, abdominal pain. I spoke with OB, spoke with Darlyn Roman, discussed case, presentation, and imaging results. She agreed to admitting the patient at this time. - Medical Records Medical records reviewed: Yes I reviewed the patient's medical records. - Lab Data Lab results reviewed: Yes I reviewed the patient's lab results. Result diagrams: 09/12/17 16:56 09/12/17 16:56 Lab Results 09/12/17 09/12/17 09/12/17 Range/Units 16:56 16:56 19:53 WBC 15.2 H (4.3-11.1) K/mcL RBC 4.73 (3.82-4.97) M/mcL Hgb 13.7 (11.5-15.4) g/dL Hct 41.4 (35.3-44.9) % MCV 87.5 (83.0-100.0) fL MCH 29.0 (28.0-33.3) pg MCHC 33.1 (31.6-35.5) g/dL RDW 14.0 (11.5-14.5) % Plt Count 613 H (140-400) K/mcL MPV 8.3 L (9.4-12.4) fL Immature Gran % 1.2 (0-4) % Seg Neutrophils % 57.7 % Lymphocytes % 19.3 % Monocytes % 13.8 % Eosinophils % 7.4 % Basophils % 0.6 % Neutrophils # 8.8 (1.6-8.9) K/mcL Lymphocytes # 2.9 (0.6-4.6) K/mcL Monocytes # 2.1 H (0.0-1.3) K/mcL Eosinophils # 1.1 H (0.0-0.6) K/mcL Basophils # 0.1 (0.0-0.2) K/mcL Sodium 133 L (136-145) mEq/L Potassium 3.7 (3.5-5.1) mEq/L Chloride 99 (98-107) mEq/L Carbon Dioxide 26 (23-29) mEq/L BUN 5 L (6-20) mg/dL Creatinine 0.49 L (0.60-1.20) mg/dL Est GFR ( Amer) > 60 (> 60) Est GFR (Non-Af Amer) > 60 (> 60) BUN/Creatinine Ratio 10 (6-26) Glucose 77 (70-105) mg/dL Calculated Osmolality 272 L (280-300) Calcium 8.9 (8.6-10.3) mg/dL Total Bilirubin 0.4 (0.3-1.0) mg/dL Direct Bilirubin 0.2 (0.0-0.2) mg/dL Indirect Bilirubin 0.2 (0.0-1.2) mg/dL AST 15 (13-39) Units/L ALT 16 (7-52) Units/L Alkaline Phosphatase 127 H (34-104) Units/L Serum Total Protein 7.1 (6.4-8.9) g/dL Albumin 3.2 L (3.5-5.7) g/dL Globulin 3.9 H (2.4-3.5) g/dL Albumin/Globulin Ratio 0.8 L (1.1-2.2) Lipase 13 (11-82) Units/L Ur Specimen Adequacy See below A Urine Color Dark Yellow (Yellow) Urine Clarity Cloudy A (Clear) Urine pH 6.0 (5.0-8.0) pH Units Ur Specific [place] 1.026 H (1.010-1.025) Urine Protein 30 H (Neg-Trace) mg/dL Urine Glucose (UA) Normal (Normal) mg/dL Urine Ketones 40 H (Negative) mg/dL Urine Blood Negative (Negative) Urine Nitrite Negative (Negative) Urine Bilirubin Negative (Negative) Urine Urobilinogen Normal (Normal) mg/dL Ur Leukocyte Esterase Moderate H (Negative) Urine Microscopic RBC 0-3 (0-3) per hpf Urine Microscopic WBC 50-100 H (0-3) per hpf Ur Squamous Epith Cells Many H (None-Few) per lpf Urine Bacteria Many H (None-Few) per hpf Hyaline Casts None Seen (None-Few) per lpf Urine Mucus Moderate H (Few) Ur Culture Indicated? NO. (NO) - Radiology Data Radiology results reviewed: Yes I reviewed the patient's radiology results. Gallbladder Ultrasound 09/12/17 16:59 IMPRESSION: Echogenic material suspected within the proximal common bile duct, possibly indicating stones/sludge. There is no significant common bile duct dilation. Gallbladder sludge suspected. D/ / Dante Raphael MD / Dante Raphael MD Interpreting Provider: Dante Raphael MD S.B.A.R. - S.B.A.R. Situation: Demographics, MOA Background: Presenting Complaint, Relevant PMH, Meds, & Allergies Assessment: Vital Signs, Course and respsone to treatment, Patient/Family Expectation, Pertinant Lab Results Recommendation: Barrier(s) to disposition, Recommendation based on pending studies, treatments, or consults S.B.A.R. Report Given to: Darlyn Roman Attestation Statement - Attestation Attestation: I examined this patient and my medical decision-making was reviewed with the Resident Physician. I agree with the documented findings, disposition and treatment plan as described except to the extent set forth below. Findings consistent with possible Crohn's flare. The patient is . No peritonitis or suspected obstructive pathology however given ongoing pain needs and advanced nature we will proceed with admission to the hospital for initiation of steroids as well as further IV fluids and OB consultation. OB has graciously agreed to accept this patient for admission with consultations to medicine.
[2017-09-12 18:03] LABS: Basophils # 0.1 K/mcL (0.0-0.2); Basophils % 0.6 %; Eosinophils # 1.1 K/mcL (0.0-0.6); Eosinophils % 7.4 %; Hematocrit 41.4 % (35.3-44.9); Hemoglobin 13.7 g/dL (11.5-15.4); Immature Granulocytes % 1.2 % (0-4); Lymphocytes # 2.9 K/mcL (0.6-4.6); Lymphocytes % 19.3 %; Mean Corpuscular HGB Conc 33.1 g/dL (31.6-35.5); Mean Corpuscular Volume 87.5 fL (83.0-100.0); Mean Platelet Volume 8.3 fL (9.4-12.4); Monocytes # 2.1 K/mcL (0.0-1.3); Monocytes % 13.8 %; Neutrophils # 8.8 K/mcL (1.6-8.9); Platelet Count 613 K/mcL (140-400); Red Blood Count 4.73 M/mcL (3.82-4.97); Segmented Neutrophils % 57.7 %
[2017-09-12 18:05] LABS: Alanine Aminotransferase 16 Units/L (7-52); Albumin 3.2 g/dL (3.5-5.7); Albumin/Globulin Ratio 0.8 (1.1-2.2); Alkaline Phosphatase 127 Units/L (34-104); Aspartate Amino Transferase 15 Units/L (13-39); BUN/Creatinine Ratio 10 (6-26); Bilirubin,Direct 0.2 mg/dL (0.0-0.2); Bilirubin,Indirect 0.2 mg/dL (0.0-1.2); Bilirubin,Total 0.4 mg/dL (0.3-1.0); Blood Urea Nitrogen 5 mg/dL (6-20); Calcium 8.9 mg/dL (8.6-10.3); Carbon Dioxide 26 mEq/L (23-29); Chloride 99 mEq/L (98-107); Globulin 3.9 g/dL (2.4-3.5); Glucose 77 mg/dL (70-105); Lipase 13 Units/L (11-82); Osmolality,Calculated 272 (280-300); Potassium 3.7 mEq/L (3.5-5.1); Sodium 133 mEq/L (136-145); Total Protein 7.1 g/dL (6.4-8.9); eGFR For African Americans > 60 (> 60); eGFR For Non-African Americans > 60 (> 60)
[2017-09-12] MEDS ORDERED: predniSONE 20 MG TABLET PO ONE (19:37)
[2017-09-12 20:06] LABS: Bilirubin,Urine Negative (Negative); Blood,Urine Negative (Negative); Clarity,Urine Cloudy (Clear); Color,Urine Dark Yellow (Yellow); Glucose,Urine (UA) Normal (Normal); Ketones,Urine 40 mg/dL (Negative); Leukocyte Esterase,Urine Moderate (Negative); Nitrite,Urine Negative (Negative); Protein,Urine 30 mg/dL (Neg-Trace); Specific Gravity,Urine 1.026 (1.010-1.025); Urobilinogen,Urine Normal (Normal)
[2017-09-12 20:09] LABS: Bacteria,Urine Many per hpf (None-Few); Squamous Epithelial Cell,Urine Many per lpf (None-Few); WBC,Urine 50-100 per hpf (0-3)
[2017-09-12 20:18] LABS: Hyaline Casts,Urine None Seen per lpf (None-Few); Mucus,Urine Moderate (Few); RBC,Urine 0-3 per hpf (0-3)
--- NOTE | 2017-09-12 21:38 | OB/GYN History & Physical ---
Date of Encounter: 09/12/17 Time of Encounter: 21:38 Assessment and Plan (1) 27 weeks gestation of Current visit: Yes Status: Acute FHT 144 BPM. Pt denies any related concerns. Good FM. Plan for FHT every shift. Will switch to EFM if pt develops any complaints. SCD's for increased risk of DVT in presence of and immobility while in the hospital. PNV if pt can tolerate. (2) Diarrhea Current visit: Yes Status: Acute Diarrhea with blood due to Crohn's. Managment per hospitalist team. Qualifiers: Diarrhea type: unspecified type Qualified Code(s): R19.7 - Diarrhea, unspecified (3) History of Crohn's disease Current visit: Yes Status: Acute Managment per Hospitalist team. History of Present Illness Chief complaint: crohn's flare, abdominal pain HPI: 37-year-old female, presenting at 27 weeks 1 day with c/o LLQ and RUQ abdominal pain diarrhea, and vomiting. Patient says that she has a history of Crohn's, used to be on chronic maintenance medication but has not been on these medications since she has been . She has had an episode of Crohn's flare in July where she had to be admitted and received IV steroids and then was sent home with by mouth steroids for 2 weeks. She presents today with return of those symptoms. She complains of left lower quadrant pain, feels like all previous episodes of Crohn's flare. She also reports right upper quadrant pain that is colicky, mainly occurs with food intake, radiates to her right back. Otherwise, denies any fevers. She does admit to nausea and vomiting, and frequent (>10 per day) loose stools, some of which have streaks of blood that is consistent with her presentation with previous Crohn's flares. She was seen by GI today, Dr. Pierson, who has referred her to the ER for fluids and ultrasound of her gallbladder. She reports last was complicated by preeclampsia at 36 weeks for which she was induced. This has been complicated by AMA status. No other complications. She denies any contractions, leaking, bleeding, headaches, or vision changes. Good FM. Past Med Surg Social Fam HX - Past Medical History Medical history: arthritis, other Psychiatric history: anxiety - Past Surgical History Surgical History: other (Colonoscopy 2yrs ago) - Social History Smoking Status: Never smoker Smokeless Tobacco Status: No Alcohol use: none Drug use: none Obstetrical History - Pregnancies : 2 Para: 1 Term: 0 : 1 Ab's: 0 Livin Medications and Allergies Promethazine [Phenergan] 25 mg PO Q12H PRN 07/16/17 [History] Esomeprazole Magnesium [Nexium] 20 mg PO DAILY 09/12/17 [History] Mesalamine [Asacol Hd] 1,600 mg PO TID 09/12/17 [History] Ondansetron HCl [Zofran] 4 mg PO Q8H PRN 09/12/17 [History] Pnv95/Ferrous Fumarate/FA [ Vitamin Tablet] 1 each PO DAILY 09/12/17 [ History] 3 Allergy/AdvReac Type Severity Reaction Status Date / Time Penicillins Allergy Hives Verified 07/15/17 17:14 Review of System OB All systems PM: reviewed and no additional remarkable complaints except as stated Exam - Vital Signs Vital signs: Initial Vital Signs Temp Pulse Resp BP Pulse Ox 98.1 F 124 14 125/87 98 09/12/17 16:28 09/12/17 16:28 09/12/17 16:28 09/12/17 16:28 09/12/17 16:28 - Constitutional Constitutional: well developed, well nourished, mild distress - HEENT HEENT: Mucus Membranes Moist - Lungs Respiratory exam: CTAB - Cardiovascular Cardiovascular exam: RRR - Abdomen Abdomen: Present: gravid - Extremities Extremities exam: normal inspection - Comments Comments: FHT 144 BPM via doppler Results Result Diagrams: 09/12/17 16:56 09/12/17 16:56 Abnormal lab results WBC 15.2 K/mcL (4.3-11.1) H 09/12/17 16:56 Plt Count 613 K/mcL (140-400) H 09/12/17 16:56 MPV 8.3 fL (9.4-12.4) L 09/12/17 16:56 Monocytes # 2.1 K/mcL (0.0-1.3) H 09/12/17 16:56 Eosinophils # 1.1 K/mcL (0.0-0.6) H 09/12/17 16:56 Sodium 133 mEq/L (136-145) L 09/12/17 16:56 BUN 5 mg/dL (6-20) L 09/12/17 16:56 Creatinine 0.49 mg/dL (0.60-1.20) L 09/12/17 16:56 Calculated Osmolality 272 (280-300) L 09/12/17 16:56 Alkaline Phosphatase 127 Units/L (34-104) H 09/12/17 16:56 Albumin 3.2 g/dL (3.5-5.7) L 09/12/17 16:56 Globulin 3.9 g/dL (2.4-3.5) H 09/12/17 16:56 Albumin/Globulin Ratio 0.8 (1.1-2.2) L 09/12/17 16:56 Ur Specimen Adequacy See below A 09/12/17 19:53 Urine Clarity Cloudy (Clear) A 09/12/17 19:53 Ur Specific [place] 1.026 (1.010-1.025) H 09/12/17 19:53 Urine Protein 30 mg/dL (Neg-Trace) H 09/12/17 19:53 Urine Ketones 40 mg/dL (Negative) H 09/12/17 19:53 Ur Leukocyte Esterase Moderate (Negative) H 09/12/17 19:53 Urine Microscopic WBC 50-100 per hpf (0-3) H 09/12/17 19:53 Ur Squamous Epith Cells Many per lpf (None-Few) H 09/12/17 19:53 Urine Bacteria Many per hpf (None-Few) H 09/12/17 19:53 Urine Mucus Moderate (Few) H 09/12/17 19:53 All other labs normal.
--- NOTE | 2017-09-13 00:49 | Internal Medicine Consult Note ---
Date of Encounter: 09/13/17 Time of Encounter: 00:05 - Assessment and plan (1) Acute Crohn's disease with rectal bleeding Current Visit: Yes Status: Acute Assessment and plan: 1. Will start IV Solu-Medrol and add IV Flagyl -- discussed with cnc cutting operator and she agrees with my recommendations. 2. Will hydrate with IVF and allow oral intake as tolerated. 3. Recommend consulting GI for further guidance and assistance. (2) RUQ pain Current Visit: Yes Status: Acute Assessment and plan: 1. History and exam suggestive of biliary colic symptoms. 2. She may/will likely need cholecystectomy at some point, preferably after . 3. Recommend dietary counseling to avoid food triggers and further work-up ( HIDA scan) and surgery consultation after . (3) 27 weeks gestation of Current Visit: Yes Status: Acute Assessment and plan: 1. Defer to SUPERVISOR RECORDS CHANGE. (4) DVT prophylaxis Current Visit: Yes Status: Acute Assessment and plan: 1. Agree with EPCD's. Internal Medicine - CN: HPI - Data of Consult Patient: new to practice Consult date: 09/13/17 Requesting Physician: Ginger Solo - Consult Narrative Reason for consult: Crohn's flare and GB symptoms History of present illness: Ms. Whiteside is a 37 year old female who was admitted to the OB service [facility] for concerns of Crohn's flareup during her . She is currently [address] Pierson in the office today, and he sent her to the ER for concerns of possible gallbladder disease and/or Crohn's flare. Patient has suffered from Crohn's disease for the last 20 years and has been maintained on routine medications including Humira. However, Humira was discontinued due to and risks associated thereof. She has been maintained on Asacol during , but she has been having worsening diarrhea with mucousy stools and blood-tinged stools the last several days. Her last Crohn's flare was 2 months ago requiring hospitalization as well. Prior to this , she had been maintained on Humira and had not been hospitalized for years. Since coming off Humira, she has had multiple flareups recently and this is her second hospital stay in 2 months. In addition to above, she has had some right upper quadrant abdominal pain associated with nausea and vomiting as well. The pain radiates to her right shoulder blade. Pain is exacerbated by fatty/greasy foods as well as some roughage such as salads and peppers. Gallbladder ultrasound was performed and revealed some gallbladder sludge. Past Med Surg Social Fam HX - Past Medical History Attestation: Yes The following information was validated with the patient. Source: patient, old records reviewed Medical history: arthritis, other (Crohn's) Psychiatric history: anxiety - Past Surgical History Surgical History: other (Colonoscopy 2yrs ago) - Social History Smoking Status: Never smoker Smokeless Tobacco Status: No Alcohol use: none Drug use: none Current living situation: Home, With Family Activity Level: Independent ambulation Recent Out of Country Travel Within the Last 8 Weeks: No - Family History Mother Living Status: Still Living Hx Family GI Disorders: No Father Living Status: Still Living Hx Family GI Disorders: No - Additional Family History Additional family history: No FH of GB disease - Constitutional Constitutional: no chills, no fever(s), no night sweats - EENT Eyes: no blurry vision Ears: no ear pain Nose, mouth and throat: no mouth lesions, no sore throat - Cardiovascular Cardiovascular ROS IM: no chest pain, no dyspnea, no edema - Respiratory Respiratory: no cough, no dyspnea, no hemoptysis, no chest congestion, no excessive phlegm production, no change in phlegm color - Gastrointestinal Gastrointestinal: abdominal pain, bloating, cramping, diarrhea, hematochezia, nausea, vomiting, no hematemesis, no melena - Genitourinary Genitourinary: no dysuria, no flank pain, no hematuria - Musculoskeletal Musculoskeletal ROS IM: no arthralgias, no back pain - Integumentary Integumentary IM: no rash, no jaundice - Neurological Neurological ROS: no dizziness, no focal weakness, no frequent falls, no headache(s) - Psychiatric Psychiatric: no anxiety, no depression - Endocrine Endocrine IM: no polydipsia, no polyuria - Hematologic/Lymphatic Hematologic/Lymphatic: no easy bruising, no lymphadenopathy - Allergic/Immunologic Allergic/Immunologic: GI upset with certain foods, no wheezing Internal Medicine - CN: Meds Promethazine [Phenergan] 25 mg PO Q12H PRN 07/16/17 [History] Esomeprazole Magnesium [Nexium] 20 mg PO DAILY 09/12/17 [History] Mesalamine [Asacol Hd] 1,600 mg PO TID 09/12/17 [History] Ondansetron HCl [Zofran] 4 mg PO Q8H PRN 09/12/17 [History] Pnv95/Ferrous Fumarate/FA [ Vitamin Tablet] 1 each PO DAILY 09/12/17 [ History] 3 Allergy/AdvReac Type Severity Reaction Status Date / Time Penicillins Allergy Hives Verified 07/15/17 17:14 Internal Medicine - CN: Exam - Constitutional Vitals: Temp Pulse Resp BP Pulse Ox 98.3 F 119 18 115/80 97 09/12/17 22:19 09/12/17 19:53 09/12/17 22:19 09/12/17 22:19 09/12/17 19:53 General appearance IM: Present: cooperative, mild distress, A&O X 3, pleasant Exam: looks dehydrated - Head Head exam: Present: normal inspection - Eye Eye exam: Present: EOMI, normal appearance, PERRL. Absent: scleral icterus Pupils: Present: normal accommodation - ENT ENT exam: Present: mucous membranes dry, normal exam, normal oropharynx Additional comments: no apthous ulcers - Neck Neck exam general surgery: Present: full ROM, supple. Absent: lymphadenopathy, tenderness, nuchal rigidity, thyromegaly - Respiratory Respiratory exam: Present: CTAB. Absent: chest wall tenderness, rales, respiratory distress, rhonchi, wheezes - Cardiovascular Cardiovascular exam IM: Present: RRR, +S1, +S2. Absent: diastolic murmur, systolic murmur - GI/Abdominal GI/Abdominal exam IM: Present: hyperactive bowel sounds, soft, tenderness (RUQ w rdition to right scapula; also pain in LLQ), no peritoneal signs. Absent: guarding, hepatomegaly, mass, rebound, splenomegaly Additional comments: gravid uterus - Extremities Exam Extremities exam IM: Present: full ROM, normal capillary refill, warm, radial pulses palpable and symmetrical. Absent: calf tenderness, joint swelling, pedal edema, tenderness - Back Exam Back exam: Present: normal inspection. Absent: CVA tenderness (L), CVA tenderness (R) - Neurological Exam Neurological exam: Present: alert, CN II-XII intact, oriented X3, no focal deficits - Psychiatric Psychiatric exam: Present: normal affect, normal mood - Skin Skin exam IM: Present: dry, warm. Absent: rash Internal Medicine - CN: Reslt - Labs CBC & Chem 7: 09/12/17 16:56 09/12/17 16:56 Consult Discharge Plan - Plan Referrals: Steve Wasserman MD [Primary Care Provider] -
[2017-09-13] MEDS: 0.9 % Sodium Chloride w KCl 20 MEQ/1,000 ML MLS IVC SCH ×2 (01:29→12:50)
[2017-09-13] MEDS ORDERED: MethylPREDNISolone 40 MG/ML VIAL IVP SCH (06:00)
[2017-09-13] MEDS: MetroNIDAZOLE 500 MG/100 ML 500 MG/100 ML BAG IVPB SCH ×2 (08:06→16:33)
[2017-09-13 08:48] LABS: Hematocrit 35.3 % (35.3-44.9); Mean Corpuscular HGB Conc 32.9 g/dL (31.6-35.5); Mean Corpuscular Hemoglobin 28.8 pg (28.0-33.3); Mean Corpuscular Volume 87.6 fL (83.0-100.0); Mean Platelet Volume 8.3 fL (9.4-12.4); Platelet Count 489 K/mcL (140-400); Red Blood Count 4.03 M/mcL (3.82-4.97); Red Cell Distribution Width 13.9 % (11.5-14.5)
[2017-09-13 09:00] LABS: BUN/Creatinine Ratio 12 (6-26); Blood Urea Nitrogen 4 mg/dL (6-20); Calcium 8.1 mg/dL (8.6-10.3); Carbon Dioxide 22 mEq/L (23-29); Chloride 106 mEq/L (98-107); Glucose 95 mg/dL (70-105); Osmolality,Calculated 277 (280-300); Potassium 3.5 mEq/L (3.5-5.1); Sodium 135 mEq/L (136-145); eGFR For African Americans > 60 (> 60); eGFR For Non-African Americans > 60 (> 60)
[2017-09-13 09:37] LABS: Hemoglobin 11.6 g/dL (11.5-15.4)
[2017-09-13] MEDS: Prenatal Vit/FA 1 EACH TABLET PO SCH (11:40)
[2017-09-13 11:57] LABS: Eosinophils # 0.3 K/mcL (0.0-0.6); Lymphocytes # 1.8 K/mcL (0.6-4.6); Neutrophils # 9.7 K/mcL (1.6-8.9)
[2017-09-13 11:58] LABS: Toxic Granulation Present (Not Present)
[2017-09-13 11:59] LABS: Platelet Estimate Increased (Normal)
[2017-09-13] MEDS ORDERED: MethylPREDNISolone 40 MG/ML VIAL IVP ONE (12:00)
--- NOTE | 2017-09-13 15:33 | Gastroenterology Consult Note ---
<Hi Currie - Last Filed: 09/13/17 15:30> Date of Encounter: 09/13/17 Time of Encounter: 11:55 - Assessment and plan (1) Acute Crohn's disease with rectal bleeding Current Visit: Yes Status: Acute Assessment and plan: Change Solu-Medrol to 60 mg daily. Plan for PO steroid on discharge, likely for the duration of her . Plan for colonoscopy after . (2) 27 weeks gestation of Current Visit: Yes Status: Acute - Time Spent With Patient Total time spent is greater than 50% in coordination of care (as documented) at patient's floor/unit and/or counseling patient: GI History of Present Illness - Data of Consult Patient: known to practice within the last 3 years Consult date: 09/13/17 Requesting Physician: Jackson Montes - Consult Narrative Reason for consult: Crohn's flare History of present illness: Ms. Whiteside is a 37 year old female with PMHx of Crohn's disease who presents for Crohn's flareup during her pregnncy. She is currently 27 weeks . She was diagnosed with Crohn's disease at age 17. She was previously on Humira, but insurance would not cover the medication, and she was changed to Asacol. Pt complains of abdominal pain, cramping, nausea, and diarrhea. She reports 15-20 episodes of diarrhea daily that started 09/05 and noticed blood in her stool 2 days prior to admission. She called into our office, and was advised to go to the ED on 09/07. Her last Crohn's flare was 2 months ago and was discharged on Prednisone 20 mg x 1 week then 10 mg x 1 week. Procedures: Colonoscopy 2 years ago at [facility] NSAIDs: None Anticoagulation: None Past Med Surg Social Fam HX - Past Medical History Medical history: arthritis, other (Crohn's) Psychiatric history: anxiety - Past Surgical History Surgical History: other (Colonoscopy 2yrs ago) - Social History Smoking Status: Never smoker Smokeless Tobacco Status: No Alcohol use: none Drug use: none - Family History Mother Living Status: Still Living Hx Family GI Disorders: No Father Living Status: Still Living Hx Family GI Disorders: No - Gastrointestinal Gastrointestinal: Present: as per HPI - Constitutional Constitutional: as per HPI - EENT Eyes: as per HPI Ears: Present: as per HPI Nose, mouth and throat: Present: as per HPI - Cardiovascular Cardiovascular ROS: Present: as per HPI - Respiratory Respiratory IM: Present: as per HPI - Genitourinary Genitourinary: Absent: change in color, Urinary frequency - Neurological ROS Neurological GI: Present: as per HPI - Hematologic/Lymphatic Hematologic/Lymphatic pediatric: Present: as per HPI - Musculoskeletal Musculoskeletal ROS GI: Present: as per HPI - Integumentary Integumentary GI: Present: as per HPI - Psychiatric ROS Psychiatric GI: Present: as per HPI - Endocrine Endocrine IM: Present: as per HPI - Constitutional Vitals: Temp Pulse Resp BP Pulse Ox 98.3 F 101 16 114/77 95 09/13/17 15:03 09/13/17 15:03 09/13/17 15:03 09/13/17 15:03 09/13/17 15:03 General appearance: Present: cooperative, A&O X 3, no acute distress, answers questions appropriately - Head Head exam: Present: atraumatic, normocephalic - Eye Eye exam: Present: normal appearance, sclera anicteric - ENT ENT exam: Present: mucous membranes moist - Neck Neck exam general surgery: Present: normal inspection, trachea midline - Respiratory Respiratory exam: Present: CTAB. Absent: rales, rhonchi - Cardiovascular Cardiovascular exam: Present: RRR, +S1, +S2 - GI/Abdominal GI/Abdominal exam: Present: soft, tenderness (lower abdominal tenderness), no peritoneal signs. Absent: distended, firm, guarding Additional comments: Gravid - Rectal Rectal exam: Present: deferred - Extremities Exam Extremities exam: Present: warm - Neurological Exam Neurological exam: Present: no focal deficits - Psychiatric Psychiatric exam: Present: normal affect, normal mood - Skin Skin exam: Present: dry, intact, normal color, warm Results - Labs CBC & Chem 7: 09/13/17 08:09 09/13/17 08:09 Labs: Last Result Calcium 8.1 mg/dL (8.6-10.3) L 09/13/17 08:09 Entire Visit Hgb 11.6 g/dL (11.5-15.4) D 09/13/17 08:09 Hct 35.3 % (35.3-44.9) 09/13/17 08:09 Total Bilirubin 0.4 mg/dL (0.3-1.0) 09/12/17 16:56 AST 15 Units/L (13-39) 09/12/17 16:56 ALT 16 Units/L (7-52) 09/12/17 16:56 Lipase 13 Units/L (11-82) 09/12/17 16:56 Consult Discharge Plan - Plan Referrals: Steve Wasserman MD [Primary Care Provider] - <Hawk Pierson - Last Filed: 09/13/17 20:05> Date of Encounter: 09/13/17 Time of Encounter: 18:00 - Time Spent With Patient Total time spent is greater than 50% in coordination of care (as documented) at patient's floor/unit and/or counseling patient: GI History of Present Illness - Data of Consult Requesting Physician: Jackson Montes - Consult Narrative History of present illness: Ms. Whiteside is a 37 year old female - Constitutional Vitals: Temp Pulse Resp BP Pulse Ox 98.3 F 101 16 114/77 95 09/13/17 15:03 09/13/17 15:03 09/13/17 15:03 09/13/17 15:03 09/13/17 15:03 Results - Labs CBC & Chem 7: 09/13/17 08:09 09/13/17 08:09 Labs: Last Result Calcium 8.1 mg/dL (8.6-10.3) L 09/13/17 08:09 Entire Visit Hgb 11.6 g/dL (11.5-15.4) D 09/13/17 08:09 Hct 35.3 % (35.3-44.9) 09/13/17 08:09 Total Bilirubin 0.4 mg/dL (0.3-1.0) 09/12/17 16:56 AST 15 Units/L (13-39) 09/12/17 16:56 ALT 16 Units/L (7-52) 09/12/17 16:56 Lipase 13 Units/L (11-82) 09/12/17 16:56 - Attending Attestation I have personally performed a face to face evaluation on this patient. I have reviewed and agree with the care plan. History and Exam by me shows: Patient seen. Per patient she is doing much better since her admission from yesterday bowel movements have decreased to only few today and no more blood in stool . Discuss option and patient would not consider any biologic during this stage of her . Recommendation: Continue IV steroids once she is feeling better then switched to 20 mg once a day and will keep her on that till her delivery
[2017-09-13] MEDS ORDERED: Ondansetron 4 MG/2 ML VIAL IVP PRN (17:51)
--- NOTE | 2017-09-13 19:30 | Event Note ---
Date of Encounter: 09/13/17 Time of Encounter: 11:00 Patient seen by Iron Assorter earlier this morning and also by myself 1. Crohn's exacerbation GI consulted with recommendations for IV Solu-Medrol
[2017-09-13] MEDS: Famotidine 20 MG TABLET PO SCH (20:54)
[2017-09-14] MEDS: 0.9 % Sodium Chloride w KCl 20 MEQ/1,000 ML MLS IVC SCH (00:37)
[2017-09-14] MEDS: MetroNIDAZOLE 500 MG/100 ML 500 MG/100 ML BAG IVPB SCH ×2 (00:38→08:03)
[2017-09-14 07:48] VITALS: BP 98/63
[2017-09-14] MEDS: Famotidine 20 MG TABLET PO SCH (08:02)
[2017-09-14] MEDS: Prenatal Vit/FA 1 EACH TABLET PO SCH (08:03)
[2017-09-14] MEDS ORDERED: MethylPREDNISolone 40 MG/ML VIAL IVP SCH (09:00)
[2017-09-14 10:41] LABS: Basophils # 0.1 K/mcL (0.0-0.2); Basophils % 0.7 %; Eosinophils # 0.6 K/mcL (0.0-0.6); Eosinophils % 5.8 %; Hematocrit 31.2 % (35.3-44.9); Hemoglobin 10.4 g/dL (11.5-15.4); Lymphocytes # 1.7 K/mcL (0.6-4.6); Lymphocytes % 15.8 %; Mean Corpuscular HGB Conc 33.3 g/dL (31.6-35.5); Mean Corpuscular Volume 86.9 fL (83.0-100.0); Monocytes # 0.7 K/mcL (0.0-1.3); Monocytes % 6.3 %; Neutrophils # 7.6 K/mcL (1.6-8.9); Platelet Count 446 K/mcL (140-400); Red Blood Count 3.59 M/mcL (3.82-4.97); Red Cell Distribution Width 14.2 % (11.5-14.5); Segmented Neutrophils % 69.4 %
[2017-09-14 11:01] LABS: BUN/Creatinine Ratio 19 (6-26); Blood Urea Nitrogen 6 mg/dL (6-20); Calcium 7.9 mg/dL (8.6-10.3); Carbon Dioxide 22 mEq/L (23-29); Chloride 107 mEq/L (98-107); Glucose 99 mg/dL (70-105); Osmolality,Calculated 276 (280-300); Potassium 4.1 mEq/L (3.5-5.1); Sodium 134 mEq/L (136-145); eGFR For African Americans > 60 (> 60); eGFR For Non-African Americans > 60 (> 60)
[2017-09-14] MEDS ORDERED: 0.9 % Sodium Chloride w KCl 20 MEQ/1,000 ML MLS IVC SCH (12:30)
--- NOTE | 2017-09-14 18:09 | Discharge Summary ---
Date of Encounter: 09/14/17 Time of Encounter: 17:59 - Discharge Diagnosis (1) 27 weeks gestation of Priority: Primary Status: Acute Comments: Follow up as scheduled. NST appropriate for gestational age (2) Acute Crohn's disease with rectal bleeding Priority: Primary Status: Acute Comments: GI discharged home on prednisone for 30 days. Follow up with GI as scheduled. - Discharge Medications Prescriptions: PredniSONE [Deltasone] 20 mg PO DAILY #30 tablet Home Medications: Esomeprazole Magnesium [Nexium] 20 mg PO DAILY 09/12/17 [History] Pnv95/Ferrous Fumarate/FA [ Vitamin Tablet] 1 each PO DAILY 09/12/17 [ History] Famotidine [Pepcid] 20 mg PO DAILY tablet 09/14/17 [Rx] PredniSONE [Deltasone] 20 mg PO DAILY #30 tablet 09/14/17 [Rx] Vit/FA 1 each PO DAILY tablet 09/14/17 [Rx] Allergies/Adverse Reactions: 3 Allergy/AdvReac Type Severity Reaction Status Date / Time Penicillins Allergy Hives Verified 07/15/17 17:14 Data Procedures and tests throughout hospitalization: Laboratory Tests 09/13/17 09/13/17 09/13/17 08:09 08:09 10:57 WBC 12.8 H RBC 4.03 Hgb 11.6 D Hct 35.3 MCV 87.6 MCH 28.8 MCHC 32.9 RDW 13.9 Plt Count 489 H MPV 8.3 L Immature Gran % Seg Neutrophils % 44.0 Band Neutrophils % 32.0 H Lymphocytes % 14.0 Monocytes % 8.0 Eosinophils % 2.0 Basophils % Neutrophils # 9.7 H Lymphocytes # 1.8 Monocytes # 1.0 Eosinophils # 0.3 Basophils # Toxic Granulation Present A Platelet Estimate Increased H Sodium 135 L Potassium 3.5 Chloride 106 Carbon Dioxide 22 L BUN 4 L Creatinine 0.34 L Est GFR ( Amer) > 60 Est GFR (Non-Af Amer) > 60 BUN/Creatinine Ratio 12 Glucose 95 Calculated Osmolality 277 L Calcium 8.1 L Hep Bs Antigen Nonreactive 09/14/17 09/14/17 10:29 10:29 WBC 10.9 RBC 3.59 L Hgb 10.4 L Hct 31.2 L MCV 86.9 MCH 29.0 MCHC 33.3 RDW 14.2 Plt Count 446 H MPV 8.0 L Immature Gran % 2.0 Seg Neutrophils % 69.4 Band Neutrophils % Lymphocytes % 15.8 Monocytes % 6.3 Eosinophils % 5.8 Basophils % 0.7 Neutrophils # 7.6 Lymphocytes # 1.7 Monocytes # 0.7 Eosinophils # 0.6 Basophils # 0.1 Toxic Granulation Platelet Estimate Sodium 134 L Potassium 4.1 Chloride 107 Carbon Dioxide 22 L BUN 6 Creatinine 0.32 L Est GFR ( Amer) > 60 Est GFR (Non-Af Amer) > 60 BUN/Creatinine Ratio 19 Glucose 99 Calculated Osmolality 276 L Calcium 7.9 L Hep Bs Antigen Labs on day of discharge: Labs from last 24 hours 09/14/17 09/14/17 10:29 10:29 WBC 10.9 RBC 3.59 L Hgb 10.4 L Hct 31.2 L MCV 86.9 MCH 29.0 MCHC 33.3 RDW 14.2 Plt Count 446 H MPV 8.0 L Immature Gran % 2.0 Seg Neutrophils % 69.4 Lymphocytes % 15.8 Monocytes % 6.3 Eosinophils % 5.8 Basophils % 0.7 Neutrophils # 7.6 Lymphocytes # 1.7 Monocytes # 0.7 Eosinophils # 0.6 Basophils # 0.1 Sodium 134 L Potassium 4.1 Chloride 107 Carbon Dioxide 22 L BUN 6 Creatinine 0.32 L Est GFR ( Amer) > 60 Est GFR (Non-Af Amer) > 60 BUN/Creatinine Ratio 19 Glucose 99 Calculated Osmolality 276 L Calcium 7.9 L Date of admission: 09/12/17 20:18 Primary care physician: Steve Loaiza Discharging clinician: Magali Coronado Anticipated date of discharge: 09/14/17 - Patient Status Disposition: Home, Self-Care Condition: Good Functional capacity at discharge: independent ambulation Overall status at discharge: patient is progressing back to baseline - Discharge Instructions Follow Up With: Steve Wasserman MD [Primary Care Provider] - - Diet and Activity Activity: resume usual activities as tolerated Diet: regular diet Hospital Course CALL CENTER SUPPORT CONSULTANT Reason for admission: other (Chrons flare) Discharge diagnosis: other (Chrons ) Hospital course: Admitted for management of chrons. management by GI and hospitalist. NST appropriate for gestational age, discharged home instable condition. Time Attestation: Total time spent providing and/or coordinating discharge services: Time Spent: Less than 30 minutes Exam - Constitutional Vitals: Temp Pulse Resp BP Pulse Ox 97.9 F 70 12 98/63 99 09/14/17 07:47 09/14/17 07:47 09/14/17 07:47 09/14/17 07:47 09/14/17 07:47 General appearance IM: cooperative, A&O X 3, no acute distress, answers questions appropriately - Respiratory Respiratory exam: Present: CTAB - Cardiovascular Cardiovascular exam IM: Present: RRR - GI/Abdominal GI/Abdominal exam IM: soft - Extremities Exam Extremities exam IM: Present: normal capillary refill, normal inspection - Neurological Exam Neurological exam: normal gait, oriented X3 - VTE Documentation of Mechanical Device: Intermittent pneumatic compression device
--- NOTE | 2017-09-14 19:10 | Internal Med Progress Note ---
Date of Encounter: 09/14/17 Time of Encounter: 18:00 - Assessment and plan (1) RUQ pain Status: Acute Assessment and plan: Patient's discomfort has greatly improved after IV Solu-Medrol. Recommendations per GI to de-escalate IV Solu-Medrol to oral prednisone and continue as outpatient for at least 30 days. (2) 27 weeks gestation of Status: Acute Assessment and plan: Defer to HYDROGEN PLANT OPERATIONS MANAGER. (3) Acute Crohn's disease with rectal bleeding Status: Acute Assessment and plan: Recommendations per GI to de-escalate from IV Solu-Medrol to oral prednisone and patient to continue oral prednisone 20 mg daily for at least 30 days. Patient to schedule follow-up with GI. - Time Spent With Patient Total time spent is greater than 50% in coordination of care (as documented) at patient's floor/unit and/or counseling patient: - Subjective Interval history: Patient reports decrease episodes of loose stools. - Constitutional Vitals: Temp Pulse Resp BP Pulse Ox 97.9 F 70 12 98/63 99 09/14/17 07:47 09/14/17 07:47 09/14/17 07:47 09/14/17 07:47 09/14/17 07:47 General appearance: Present: cooperative, mild distress, A&O X 3, pleasant - Cardiovascular Cardiovascular exam: Present: RRR, +S1, +S2. Absent: diastolic murmur, gallop, rubs, systolic murmur - GI/Abdominal GI/Abdominal exam: Absent: tenderness Internal Medicine: Result - Labs CBC & Chem 7: 09/14/17 10:29 09/14/17 10:29 Labs: Short CBC 09/14/17 Range/Units 10:29 WBC 10.9 (4.3-11.1) K/mcL Hgb 10.4 L (11.5-15.4) g/dL Hct 31.2 L (35.3-44.9) % Plt Count 446 H (140-400) K/mcL Neutrophils # 7.6 (1.6-8.9) K/mcL BMP 09/14/17 10:29 Sodium 134 L Potassium 4.1 Chloride 107 Carbon Dioxide 22 L BUN 6 Creatinine 0.32 L Glucose 99 Calcium 7.9 L - VTE Documentation of Mechanical Device: Intermittent pneumatic compression device Consult Discharge Plan - Plan Additional Instructions: LABOR AND DELIVERY DISCHARGE INSTRUCTIONS Signs and Symptoms to be Reported to your Doctor Immediately: * Sudden gush, continuous or intermittent lead of fluid from vagina (note the time of gush and color of fluid) * Onset of bright red vaginal bleeding with or without pain (if you had a vaginal exam during this visit you may notice some dark red spotting. This is normal.) * Lower abdominal cramping or backache that is premenstrual-like feeling. * More than 6 contractions in one hour. * Burning during urination, having to urinate more frequently or pain in your mid-back. * A change in the baby's activity. This could be an increase or decrease in activity. * Severe headache which does not go away with tylenol. * Sudden swelling in the face, hands, arms and/or legs. * Upper abdominal pain - sometimes associated with heartburn or nausea and is not relieved by Maalox, Mylanta or Tums. * Dizziness or blurred vision or visual disturbances (seeing stars/lights). * Kick Counts One hour after a meal, lay down on one side in a quiet place. Count the number of onur the baby moves during an hour. If less than 6 movements, notify your physician. Diet: *Force fluids - 8-10 tall glasses of fluid per day. May include popsicles and jello. *Limit caffeine - this includes chocolate, coffee, tea, any soft drink containing such as all ale, Ziyad Yellow and Mountain Dew Referrals: Steve Wasserman MD [Primary Care Provider] - Prescriptions: PredniSONE [Deltasone] 20 mg PO DAILY #30 tablet
[2017-09-17 14:03] LABS: QuantiFERON Mitogen minus NIL 0.25 IU/mL; QuantiFERON-TB minus NIL 0.01 IU/mL (0.00-0.34)
[2017-09-17 14:09] LABS: QuantiFERON NIL 0.02 IU/mL; QuantiFERON-TB Gold In-Tube INDETERMINATE (Negative)
[2017-09-17 21:04] LABS: Thiopurine Methy Genotyp *3A/NEG; Thiopurine Methyl Gen Specimen WHOLE BLOOD
== END 2017-09-14 18:46 | disposition home or self-care (01) ==
LOC: 1NENUOBS 16:22 → EMEROO 16:22 → SUATTDRO 20:18 → 1NENUOBS 22:05
PROVIDERS: ADMIT Registered Nurse; ATTEND Hospitalist

== ENCOUNTER 2017-12-03 08:19 | Observation (INO) ==
[2017-12-03 09:37] LABS: Amphetamine Screen,Urine Negative ng/mL (Cutoff=1000); Barbiturate Screen,Urine Negative ng/mL (Cutoff=200); Benzodiazepines Screen,Urine Negative ng/mL (Cutoff=200); Cannabinoid Screen,Urine Negative ng/mL (Cutoff = 50); Cocaine Screen,Urine Negative ng/mL (Cutoff= 300); Opiate Screen,Urine Negative ng/mL (Cutoff=300); Phencyclidine Screen,Urine Negative ng/mL (Cutoff=25)
--- NOTE | 2017-12-03 12:27 | OB/GYN Progress Note ---
Date of Encounter: 12/03/17 Time of Encounter: 12:26 - Assessment and Plan (1) 38 weeks gestation of Current Visit: Yes Status: Acute (2) Uterine contractions during Current Visit: Yes Status: Acute No change on serial cervical exams. Patient states contractions feels stronger discussed option of staying for observation or continuing to labor home. Patient decided to would rather labor home. Discharged home with labor and when to return to triage precautions. Patient verbalizes understanding Subjective - Subjective Interval history: 38+6 weeks presents to triage with complaints of contractions, and spotting. Reports good movement, denies leaking of fluid Antepartum ROS: vaginal bleeding, movement normal, contractions, no loss of fluid Objective - Vital Signs Vital Signs: Intake and Output 12/02/17 12/03/17 12/03/17 23:59 07:59 15:59 Other: Weight 77.1 kg Patient Weight 12/03/17 23:59 Weight 77.1 kg - Exam FHR: auscultation normal FHR comments: Baseline 130 Abdomen: Present: soft, gravid Cervical dilation: 2-3/80/-2
== END 2017-12-03 12:44 | disposition home or self-care (01) ==
LOC: 1NENULAB
PROVIDERS: ADMIT Obstetrics & Gynecology; ATTEND Obstetrics & Gynecology

== ENCOUNTER 2017-12-06 02:28 | Inpatient (IN) ==
[~2017-12-06 02:28] MED LIST: *HR* Nalbuphine 10 MG/ML AMPUL IVP PRN; Famotidine 20 MG/2 ML VIAL IVP PRN; Metoclopramide 10 MG/2 ML VIAL IVP PRN; Naloxone 0.4 MG/ML INJ IVP PRN; Ondansetron 4 MG/2 ML VIAL IVP PRN
[2017-12-06] MEDS ORDERED: Ringers Solution, Lactated 1,000 ML IVC SCH (02:30)
--- NOTE | 2017-12-06 02:55 | OB/GYN History & Physical ---
Date of Encounter: 12/06/17 Time of Encounter: 02:48 Assessment and Plan (1) 39 weeks gestation of Current visit: Yes Status: Acute (2) SROM (spontaneous rupture of membranes) Current visit: Yes Status: Acute Admit to labor and delivery Nubain and epidural as desired Expectant management at this time as patient is kathy intermittent auscultation GBS negative Anticipate History of Present Illness Chief complaint: SROM HPI: Ms. Whiteside is a 37 year old female 39+2 weeks presents to triage with SROM at 0100. Reports good movement, and occasional contractions, denies vaginal bleeding. care with Dr. Mckeon. complicated by maternal chron's disease with multiple flares and steroid use in , otherwise uncomplicated course. Labs: O+, Rubella and Varicella immune, GBS-, all other serologies negative. Past Med Surg Social Fam HX - Past Medical History Medical history: arthritis, other Additional medical history: chrone's disease, chronic migraines Psychiatric history: anxiety - Past Surgical History Surgical History: other Additional surgical history: buneonectomy on right foot - Social History Smoking Status: Never smoker Smokeless Tobacco Status: No Alcohol use: none Drug use: none - Family History Mother Living Status: Hx Family Cardiac Disorders: No Hx Family Respiratory Disorders: No Hx Family Cancer: Yes Hx Family GI Disorders: No Hx Family Endocrine Disorder: No Hx Family Neuromuscular Disorders: No Hx Family Neurologic Disorders: No Hx Family HEENT Disorders: No Hx Family Autoimmune Disorders: No Father Living Status: Still Living Hx Family Cardiac Disorders: No Hx Family Respiratory Disorders: No Hx Family Cancer: No Hx Family GI Disorders: No Hx Family Endocrine Disorder: No Hx Family Neuromuscular Disorders: No Hx Family Neurologic Disorders: No Hx Family HEENT Disorders: No Hx Family Autoimmune Disorders: No Obstetrical History - Pregnancies : 2 Para: 1 Term: 1 : 0 Ab's: 0 Livin Medications and Allergies Vit/FA 1 each PO DAILY tablet 09/14/17 [Rx] Ferrous Sulfate [Iron] 325 mg PO DAILY 12/03/17 [History] Omeprazole [PriLOSEC] 40 mg PO DAILY 12/03/17 [History] Ondansetron HCl [Zofran] 4 mg PO Q8HR PRN 12/03/17 [History] 3 Allergy/AdvReac Type Severity Reaction Status Date / Time Penicillins Allergy Hives Verified 12/06/17 02:18 Exam - Constitutional Constitutional: well developed, well nourished, no acute distress - Neck Neck exam: full ROM - Lungs Respiratory exam: CTAB - Cardiovascular Cardiovascular exam: RRR - Abdomen Abdomen: Present: gravid, non tender - Extremities Extremities exam: normal capillary refill, normal inspection - Cervix Dilation: 3 (per RN) Effacement: 80 Station: -1 Results Result Diagrams: 12/06/17 02:50 All other labs normal. - VTE Reasons for not Prescribing Prophylaxis: Treatment not Indicated - Low risk for VTE
[2017-12-06 03:17] LABS: Basophils # 0.1 K/mcL (0.0-0.2); Basophils % 0.6 %; Eosinophils # 0.2 K/mcL (0.0-0.6); Eosinophils % 1.5 %; Hematocrit 37.5 % (35.3-44.9); Hemoglobin 12.4 g/dL (11.5-15.4); Lymphocytes # 3.2 K/mcL (0.6-4.6); Lymphocytes % 23.5 %; Mean Corpuscular HGB Conc 33.1 g/dL (31.6-35.5); Mean Corpuscular Hemoglobin 29.2 pg (28.0-33.3); Mean Corpuscular Volume 88.4 fL (83.0-100.0); Mean Platelet Volume 9.1 fL (9.4-12.4); Monocytes # 1.4 K/mcL (0.0-1.3); Monocytes % 10.1 %; Neutrophils # 8.5 K/mcL (1.6-8.9); Platelet Count 358 K/mcL (140-400); Red Blood Count 4.24 M/mcL (3.82-4.97); Red Cell Distribution Width 14.6 % (11.5-14.5); Segmented Neutrophils % 63.3 %
[2017-12-06 03:32] LABS: Amphetamine Screen,Urine Negative ng/mL (Cutoff=1000); Barbiturate Screen,Urine Negative ng/mL (Cutoff=200); Benzodiazepines Screen,Urine Negative ng/mL (Cutoff=200); Cannabinoid Screen,Urine Negative ng/mL (Cutoff = 50); Cocaine Screen,Urine Negative ng/mL (Cutoff= 300); Opiate Screen,Urine Negative ng/mL (Cutoff=300); Phencyclidine Screen,Urine Negative ng/mL (Cutoff=25)
[2017-12-06] MEDS ORDERED: Bupivacaine-MPF 0.25% 10 ML VIAL EP ONE (08:16)
[2017-12-06] MEDS ORDERED: *HR* FentaNYL (PF) 100 MCG/2 ML VIAL EP ONE (08:16)
[2017-12-06] MEDS ORDERED: Lidocaine -MPF 1% 5 ML AMPUL ONE (08:18)
[2017-12-06] MEDS ORDERED: *HR* FentaNYL (PF) 100 MCG/2 ML VIAL ONE (08:18)
[2017-12-06] MEDS ORDERED: Bupivacaine-MPF 0.25% 10 ML VIAL ONE (08:18)
[2017-12-06] MEDS ORDERED: Epidural Premix (fent/bupiv) 110 ML EP SCH (08:30)
--- NOTE | 2017-12-06 08:58 | Anesthesia Evaluation PreOp ---
Date of Encounter: 12/06/17 Time of Encounter: 08:25 - Past History Planned Operation: RAGHU Cardiac History: Denies any Significant Hx Pulmonary History: Denies Any Significant HX EQUAL OPPORTUNITY COUNSELOR History: Denies Any Significant HX Other Medical History: Denies Any Significant HX Anesthesia History: No Prior Anesthetic Complications (denies personal h/o NA & GA complications; denies family h/o GA complications) : Yes Test: Positive Alcohol Use: none Drug use: none Medications and Allergies Vit/FA 1 each PO DAILY tablet 09/14/17 [Rx] Ferrous Sulfate [Iron] 325 mg PO DAILY 12/03/17 [History] Omeprazole [PriLOSEC] 40 mg PO DAILY 12/03/17 [History] Ondansetron HCl [Zofran] 4 mg PO Q8HR PRN 12/03/17 [History] 3 Allergy/AdvReac Type Severity Reaction Status Date / Time Penicillins Allergy Hives Verified 12/06/17 02:18 - Meds/Allergy Pre-op Review Medications Reviewed: Yes Allergies Reviewed: Yes Beta Blockers on Current Med List: No Anesthesia Results - Labs 12/06/17 02:50 Anesthesia Exam 117/76, HR 88, RR 24 O2 Sat Height 1.68 m Weight 78.88 kg NPO (# of Hours): solids > 8hrs Pain Scale: 10 Pain Scale Used: Numeric (1 - 10) - HEENT Pupil (Motor): Pupils equal Mallampati: II Teeth: Normal Oral Opening: Greater than 3 - EQUAL OPPORTUNITY COUNSELOR LOC: Oriented EQUAL OPPORTUNITY COUNSELOR Motor: Normal RUE, Normal LUE, Normal RLE, Normal LLE, Normal Face EQUAL OPPORTUNITY COUNSELOR Sensory: Normal: RUE, LUE, RLE, LLE, Face - Cardiac Rhythm: Regular Murmur: None - Pulmonary Breath Sounds: bilateral Clear Respiratory Effort: Symmetrical Anesthesia Assess/Plan ASA Score: 2 Modified Cadet Scale for Level of Consciousness: Anixous, agitated or restless Anesthetic Plan: Regional Autologous Blood: No Monitoring Plan: Standard Monitors Recovery Plan: Other
--- NOTE | 2017-12-06 09:00 | Anesthesia Procedures ---
Date of Encounter: 12/06/17 Time of Encounter: 08:58 Procedures: Anesthesia - Epidural/Spinal Patient ID/Chart reviewed: Yes Patient examined: Yes OB Eval: Gestational age: 39 weeks 3 days OB Eval: : 2 OB Eval: Hx Para: 1 OB Eval: Dilated at (cm): 6 OB Eval: Contractions: Non-stressed pattern Consent Obtained: Yes Supplemental Oxygen: None/Room Air Site Prep: Aseptic Technique, Sterile prep and drape, Povidone-Iodine 1% Patient position: upright Local Anesthetic: Lidocaine 1% Amount of Local Anesthetic used: 3 Touhy Needle Gauge: 18 Touhy Needle Depth (cm): 6 Catheter Depth at Skin (cm): 11 Test Dose (1.5% Lido + Epi): Volume given (mls): 5 Test Dose Result: Negative Loading Dose: 0.25% Marcaine (mls): 5 Loading Dose: Fentanyl (mcg): 199 Loading Dose Administered: Thru Catheter Infusion Med: 0.125% Bupivacaine w/ 2 mcg/ml Fentanyl Infusion Rate (mls/hr): [address]: Tegaderm, Tape Interspace Used: L4-L5 Loss of Resistance (VILLA): Yes Blood: No CSF: No Paresthesia: Yes (transient RLE w/ catheter advancement) Procedure: successful on 1st attempt; patient tolerated procedure well; VSS Vitals + FHT's: see [facility]'s electronic records for VS entry
[2017-12-06] MEDS ORDERED: EPHEDrine 50 MG/ML VIAL ONE ×2 (09:10→09:11)
--- NOTE | 2017-12-06 12:47 | OB Labor Progress Note ---
Date of Encounter: 12/06/17 Time of Encounter: 12:45 Labor Progress Note - Subjective Subjective: Comfortable with epidural - Cervix Cervix: Anterior rim
[2017-12-06] MEDS ORDERED: Oxytocin 20 units/ LR 1000 mL 20 UNIT/1,000 ML BAG IVC ONE (13:19)
--- NOTE | 2017-12-06 13:41 | OB/GYN Procedure Note ---
Delivery - Delivery Date: 12/06/17 Provider: Caden Mckeon Intrapartum events: none Delivery induction: none Delivery augmentation: rupture of membranes Delivery monitor: external FHT, external uterine Anesthesia: epidural Quantitated Blood Loss: 50 - (s) Infant A Delivery Date: 12/06/17 Delivery Time: 13:18 Presentation: vertex Position: ROX Route of delivery: Gender: Male Viability: Viable Pounds: 6 Ounces: 11 at 1 minute: 9 at 5 mins: 9 Shoulder Dystocia: not encountered Specimens collected: cord blood Placenta: spontaneous - Repair Episiotomy: none Laceration Description: None - Complications Delivery complications: none - Disposition Mom disposition: stable in LDR disposition: stable in LDR - Comments Comments: Patient progressed to complete and on the perineum under epidural anesthesia. Patient delivered a live male weighing 6 lbs. 11 oz. with 3035 g. Apgars were 9 and 9. Position was right occiput anterior position delivery time was 13 and 18. Asthma blood loss was 50 mL. Placenta delivered spontaneously intact.
[2017-12-06] MEDS ORDERED: Oxytocin 20 units/ LR 1000 mL 20 UNIT/1,000 ML BAG IVC SCH (14:57)
[2017-12-06] MEDS ORDERED: Acetaminophen 325 MG TABLET PO PRN (14:57)
[2017-12-06] MEDS ORDERED: Ondansetron ODT 4 MG TAB.RAPDIS PO PRN (14:57)
[2017-12-06] MEDS ORDERED: Sennosides 8.6 MG TABLET PO PRN (14:57)
[2017-12-06] MEDS ORDERED: Rho Immune Globulin 1,500 UNIT SYRINGE IM PRN (14:57)
[2017-12-06] MEDS ORDERED: Measles/Mumps/Rubella Vacc 0.5 ML VIAL SQ PRN (14:57)
[2017-12-06] MEDS: Ibuprofen 600 MG TABLET PO PRN ×2 (15:08→23:44)
[2017-12-07 04:44] LABS: Basophils # 0.1 K/mcL (0.0-0.2); Basophils % 0.3 %; Eosinophils # 0.3 K/mcL (0.0-0.6); Eosinophils % 1.6 %; Hematocrit 33.6 % (35.3-44.9); Hemoglobin 10.9 g/dL (11.5-15.4); Immature Granulocytes % 0.9 % (0-4); Lymphocytes # 3.2 K/mcL (0.6-4.6); Lymphocytes % 20.7 %; Mean Corpuscular HGB Conc 32.4 g/dL (31.6-35.5); Mean Corpuscular Hemoglobin 28.5 pg (28.0-33.3); Mean Platelet Volume 9.3 fL (9.4-12.4); Monocytes # 1.5 K/mcL (0.0-1.3); Neutrophils # 10.3 K/mcL (1.6-8.9); Platelet Count 322 K/mcL (140-400); Red Blood Count 3.82 M/mcL (3.82-4.97); Red Cell Distribution Width 14.9 % (11.5-14.5); Segmented Neutrophils % 66.5 %
[2017-12-07 08:04] VITALS: BP 109/73
[2017-12-07] MEDS: Ibuprofen 600 MG TABLET PO PRN (08:15)
[2017-12-07] MEDS ORDERED: Prenatal Vit/FA 1 EACH TABLET PO SCH ×2 (09:00)
--- NOTE | 2017-12-07 09:53 | Discharge Summary ---
Date of Encounter: 12/07/17 Time of Encounter: 09:50 - Discharge Diagnosis (1) Vaginal delivery Priority: Primary Status: Acute Comments: Pain well controlled with by mouth pain meds Vital signs stable Tolerating regular diet Voiding independently Passing flatus, but no BM yet Lochia light Ambulating independently Discharge home today (2) Breast feeding status of mother Priority: Secondary Status: Acute Comments: Community resources provided (3) anemia Priority: Secondary Status: Acute Comments: Continue iron once daily - Discharge Medications Prescriptions: Ibuprofen [Motrin] 600 mg PO Q6HR PRN #30 tablet PRN Reason: Pain Docusate [Colace] 100 mg PO BID #30 capsule Ferrous Sulfate 325 mg PO DAILY #30 tablet Home Medications: Vit/FA 1 each PO DAILY tablet 09/14/17 [Rx] Ferrous Sulfate [Iron] 325 mg PO DAILY 12/03/17 [History] Omeprazole [PriLOSEC] 40 mg PO DAILY 12/03/17 [History] Ondansetron HCl [Zofran] 4 mg PO Q8HR PRN 12/03/17 [History] Acetaminophen [Tylenol] 650 mg PO Q6HR PRN tablet 12/07/17 [Rx] Docusate [Colace] 100 mg PO BID #30 capsule 12/07/17 [Rx] Ferrous Sulfate 325 mg PO DAILY #30 tablet 12/07/17 [Rx] Ibuprofen [Motrin] 600 mg PO Q6HR PRN #30 tablet 12/07/17 [Rx] Allergies/Adverse Reactions: 3 Allergy/AdvReac Type Severity Reaction Status Date / Time Penicillins Allergy Hives Verified 12/06/17 02:18 Data Procedures and tests throughout hospitalization: Laboratory Tests 12/06/17 12/06/17 12/07/17 02:50 02:50 04:13 WBC 13.5 H 15.4 H RBC 4.24 3.82 Hgb 12.4 10.9 L D Hct 37.5 33.6 L MCV 88.4 88.0 MCH 29.2 28.5 MCHC 33.1 32.4 RDW 14.6 H 14.9 H Plt Count 358 322 MPV 9.1 L 9.3 L Immature Gran % 1.0 0.9 Seg Neutrophils % 63.3 66.5 Lymphocytes % 23.5 20.7 Monocytes % 10.1 10.0 Eosinophils % 1.5 1.6 Basophils % 0.6 0.3 Neutrophils # 8.5 10.3 H Lymphocytes # 3.2 3.2 Monocytes # 1.4 H 1.5 H Eosinophils # 0.2 0.3 Basophils # 0.1 0.1 Urine Opiates Screen Negative Ur Barbiturates Screen Negative Ur Phencyclidine Scrn Negative Ur Amphetamines Screen Negative U Benzodiazepines Scrn Negative Urine Cocaine Screen Negative U Marijuana (THC) Screen Negative Ur Drug Screen Interp See Below Labs on day of discharge: Labs from last 24 hours 12/07/17 04:13 WBC 15.4 H RBC 3.82 Hgb 10.9 L D Hct 33.6 L MCV 88.0 MCH 28.5 MCHC 32.4 RDW 14.9 H Plt Count 322 MPV 9.3 L Immature Gran % 0.9 Seg Neutrophils % 66.5 Lymphocytes % 20.7 Monocytes % 10.0 Eosinophils % 1.6 Basophils % 0.3 Neutrophils # 10.3 H Lymphocytes # 3.2 Monocytes # 1.5 H Eosinophils # 0.3 Basophils # 0.1 Date of admission: 12/06/17 02:28 Primary care physician: PCP NONE Consults: 12/06/17 14:57 Consult to Rn Field [CONS] Routine Comment: Vaginal delivery, consult needed Discharging clinician: Madelyn Mendoza Anticipated date of discharge: 12/07/17 - Patient Status Disposition: Home, Self-Care Condition: Good Functional capacity at discharge: independent ambulation Overall status at discharge: patient is progressing back to baseline - Discharge Instructions Follow Up With: NONE,PCP [Primary Care Provider] - Caden Mckeon MD [Partnered Physician] - - Diet and Activity Activity: increase activity as tolerated Diet: regular diet Hospital Course Reason for admission: active labor, IUP at term Delivery: Episiotomy: none Laceration: 1st degree Other procedures: none complications: none Discharge diagnosis: IUP at term delivered baby: male Time Attestation: Total time spent providing and/or coordinating discharge services: Time Spent: Less than 30 minutes Exam - Constitutional Vitals: Temp Pulse Resp BP Pulse Ox 97.9 F 92 16 109/73 97 12/07/17 07:30 12/07/17 07:30 12/07/17 07:30 12/07/17 07:30 12/07/17 03:57 General appearance IM: A&O X 3 - Respiratory Respiratory exam: Present: CTAB - Cardiovascular Cardiovascular exam IM: Present: RRR, +S1, +S2 - GI/Abdominal GI/Abdominal exam IM: normal bowel sounds, no peritoneal signs - Rectal Rectal exam: deferred - Uterine Tone: Firm Uterus Position: At Umbilicus, Midline - Extremities Exam Extremities exam IM: Present: normal capillary refill, normal inspection, pedal edema, radial pulses palpable and symmetrical - Neurological Exam Neurological exam: alert, CN II-XII intact, normal gait, oriented X3, reflexes normal, no focal deficits, strengths equal and symetr throughout - Psychiatric Additional comments: Patient denies history of anxiety and depression. Signs and symptoms of depression discussed with patient and she verbalizes understanding of when to seek help. - Other Additional findings: Breasts: Soft, nontender. Nipples intact without erythema.
== END 2017-12-07 14:25 | disposition home or self-care (01) | DRG 775 ==
LOC: 1NENULAB → 1NENUOBS 16:11
PROVIDERS: ADMIT Advanced Practice Midwife; ATTEND Advanced Practice Midwife

== ENCOUNTER 2019-01-01 12:36 | Observation (INO) ==
[2019-01-01] MEDS ORDERED: 0.9 % Sodium Chloride 1,000 ML IVC ONE (13:00)
[2019-01-01] MEDS ORDERED: Isovue-370 500 ML BOTTLE IVP ONE (13:36)
[2019-01-01 13:48] LABS: Basophils % 0.2 %; Eosinophils # 0.2 K/mcL (0.0-0.6); Eosinophils % 0.9 %; Hematocrit 30.2 % (35.3-44.9); Hemoglobin 9.2 g/dL (11.5-15.4); Immature Granulocytes % 0.8 % (0-4); Lymphocytes # 1.9 K/mcL (0.6-4.6); Lymphocytes % 11.4 %; Mean Corpuscular HGB Conc 30.5 g/dL (31.6-35.5); Mean Corpuscular Hemoglobin 22.4 pg (28.0-33.3); Mean Corpuscular Volume 73.5 fL (83.0-100.0); Monocytes # 1.9 K/mcL (0.0-1.3); Monocytes % 11.5 %; Neutrophils # 12.7 K/mcL (1.6-8.9); Platelet Count 633 K/mcL (140-400); Red Blood Count 4.11 M/mcL (3.82-4.97); Red Cell Distribution Width 15.3 % (11.5-14.5); Segmented Neutrophils % 75.2 %; White Blood Count 16.9 K/mcL (4.3-11.1)
[2019-01-01 14:16] LABS: Alanine Aminotransferase 14 Units/L (7-52); Albumin/Globulin Ratio 0.9 (1.1-2.2); Alkaline Phosphatase 81 Units/L (34-104); Aspartate Amino Transferase 12 Units/L (13-39); BUN/Creatinine Ratio 17 (6-26); Bilirubin,Direct 0.1 mg/dL (0.0-0.2); Bilirubin,Indirect 0.2 mg/dL (0.0-1.2); Bilirubin,Total 0.3 mg/dL (0.3-1.0); Blood Urea Nitrogen 12 mg/dL (6-20); Calcium 8.3 mg/dL (8.6-10.3); Carbon Dioxide 28 mEq/L (23-29); Chloride 96 mEq/L (98-107); Globulin 3.4 g/dL (2.4-3.5); Glucose 115 mg/dL (70-105); Osmolality,Calculated 283 (280-300); Potassium 2.6 mEq/L (3.5-5.1); Sodium 136 mEq/L (136-145); Total Protein 6.4 g/dL (6.4-8.9); Troponin I < 0.03 ng/mL (< 0.04); eGFR For African Americans > 60 (> 60); eGFR For Non-African Americans > 60 (> 60)
[2019-01-01] MEDS ORDERED: Acetaminophen IV 500 MG/50 ML INFUS..BTL IVPB ONE (14:20)
[2019-01-01] MEDS ORDERED: Potassium Chloride 40 MEQ, Lidocaine 1% 2 ML in D5% in Water 500 ML IVPB ONE (14:21)
[2019-01-01] MEDS ORDERED: cefTRIAXone 1,000 MG in Water for inj. (sterile) 10 ML IVP ONE (15:05)
[2019-01-01] MEDS ORDERED: MetroNIDAZOLE 500 MG/100 ML 500 MG/100 ML BAG IVPB ONE (15:05)
[2019-01-01] MEDS ORDERED: MethylPREDNISolone 40 MG/ML VIAL IVP ONE (15:47)
[2019-01-01] MEDS ORDERED: Naloxone 0.4 MG/ML INJ IVP PRN (17:18)
[2019-01-01] MEDS ORDERED: Ibuprofen 600 MG TABLET PO PRN (17:23)
[2019-01-01] MEDS ORDERED: Acetaminophen 325 MG TABLET PO PRN (17:23)
[2019-01-01] MEDS ORDERED: *HR* HYDROcodone/Acet 5/325 mg TABLET PO PRN (17:23)
[2019-01-01] MEDS ORDERED: Potassium Chloride Elixir 20 MEQ/15 ML UDC PO SCH ×2 (17:30)
[2019-01-01] MEDS: 0.9 % Sodium Chloride 1,000 ML IVC SCH (18:56)
[2019-01-01] MEDS ORDERED: traZODone 50 MG TABLET PO SCH (21:00)
[2019-01-02] MEDS: MetroNIDAZOLE 500 MG/100 ML 500 MG/100 ML BAG IVPB SCH ×2 (00:01→08:37)
[2019-01-02] MEDS: *HR* Heparin 5,000 UNIT/ML VIAL SQ SCH ×2 (00:05→04:12)
[2019-01-02 03:57] LABS: Basophils % 0.1 %; Hematocrit 27.5 % (35.3-44.9); Hemoglobin 8.3 g/dL (11.5-15.4); Immature Granulocytes % 0.9 % (0-4); Lymphocytes % 12.7 %; Mean Corpuscular HGB Conc 30.2 g/dL (31.6-35.5); Mean Corpuscular Hemoglobin 22.3 pg (28.0-33.3); Mean Corpuscular Volume 73.9 fL (83.0-100.0); Mean Platelet Volume 8.2 fL (9.4-12.4); Monocytes # 0.7 K/mcL (0.0-1.3); Monocytes % 8.4 %; Neutrophils # 6.4 K/mcL (1.6-8.9); Platelet Count 506 K/mcL (140-400); Red Blood Count 3.72 M/mcL (3.82-4.97); Red Cell Distribution Width 15.2 % (11.5-14.5); Segmented Neutrophils % 77.9 %
[2019-01-02 03:58] LABS: White Blood Count 8.2 K/mcL (4.3-11.1)
[2019-01-02] MEDS: 0.9 % Sodium Chloride 1,000 ML IVC SCH ×2 (04:08→13:57)
[2019-01-02 04:14] LABS: BUN/Creatinine Ratio 18 (6-26); Blood Urea Nitrogen 7 mg/dL (6-20); Calcium 6.3 mg/dL (8.6-10.3); Carbon Dioxide 21 mEq/L (23-29); Chloride 113 mEq/L (98-107); Glucose 108 mg/dL (70-105); Magnesium 1.5 mg/dL (1.6-2.6); Osmolality,Calculated 285 (280-300); Potassium 3.2 mEq/L (3.5-5.1); Sodium 138 mEq/L (136-145); eGFR For African Americans > 60 (> 60); eGFR For Non-African Americans > 60 (> 60)
[2019-01-02] MEDS ORDERED: Potassium Phosphate 44 MEQ in 0.9 % Sodium Chloride 250 ML IVPB ONE (08:14)
[2019-01-02] MEDS ORDERED: NORETHINDRONE 0.35 MG PO SCH (09:00)
[2019-01-02] MEDS ORDERED: MethylPREDNISolone 40 MG/ML VIAL IVP SCH (09:00)
[2019-01-02] MEDS ORDERED: Venlafaxine XR (24 HR) 75 MG CAP.ER.24H PO SCH (09:00)
[2019-01-02 09:11] LABS: C.difficile Toxin A/B Gene PCR Not detected (Not detect); Campylobacter by PCR Not detected (Not detect); Plesiomonas shigelloides PCR Not detected (Not detect); Salmonella PCR Not detected (Not detect)
[2019-01-02 09:12] LABS: Adenovirus F 40/41 PCR Not detected (Not detect); Astrovirus PCR Not detected (Not detect); Cryptosporidium by PCR Not detected (Not detect); Cyclospora cayetanensis PCR Not detected (Not detect); E. coli O157 by PCR Not detected (Not detect); Entamoeba histolytica PCR Not detected (Not detect); Enteroaggregative E.coli(EAEC) Not detected (Not detect); Enteropathogenic E.coli(EPEC) Not detected (Not detect); Enterotoxigenic E.coli (ETEC) Not detected (Not detect); Giardia lamblia PCR Not detected (Not detect); Norovirus GI/GII PCR Not detected (Not detect); Rotavirus A PCR Not detected (Not detect); Sapovirus PCR Not detected (Not detect); Shig/EnteroinvasiveE coli EIEC Not detected (Not detect); Shigalike tox-prod E coli STEC Not detected (Not detect); Vibrio PCR Not detected (Not detect); Vibrio cholerae PCR Not detected (Not detect); Yersinia enterocolitica PCR Not detected (Not detect)
[2019-01-02 10:17] VITALS: BP 91/62
[2019-01-02 15:38] LABS: % Iron Saturation 14 % (15-50); Iron 31 mcg/dL (50-170); Transferrin 163 mg/dL (203-362)
[2019-01-02 16:04] LABS: Folate 14.9 ng/mL (3.0-16.0)
== END 2019-01-02 16:05 | disposition home or self-care (01) ==
LOC: EMEROOARM 12:36 → 3ANU 12:36
PROVIDERS: ADMIT Student in an Organized Health Care Education/Training Program; ATTEND Student in an Organized Health Care Education/Training Program